=== PATIENT | female | born 1940 | race African-American/Black ===

== ENCOUNTER 2016-05-28 18:48 | Inpatient (IN) | payer MEDICARE, BC, OTHER ==
--- NOTE | ~2016-05-28 | DS ---
Discharge Summary [place] [id number] [place]. [address] NAME: ERNESTINA CARRILLO : 40 STATUS : DIS IN PAT#: [id number] AGE: 76 ADM/REG DATE : 05/28/16 MR#: [id number] REPORT SERV DATE: 06/11/16 DICTATED BY: MELE CONTRERAS DATE: 06/11/16 REPORT STATUS : Draft TRANSCRIBED BY: MODL DATE: 06/11/16 ADMISSION DATE: 05/28/2016 DISCHARGE DATE: 06/11/2016 DISCHARGE DIAGNOSES: 1. Lethargy and encephalopathy responsive to high dose steroids per Neurology recommendations. 2. Nausea vomiting, abdominal pain, present on admission but now resolved. 3. Small CVA, acute, which cannot explain the lethargy and encephalopathy above, this was an incidental finding from MRI of the brain. 4. Biliary dyskinesia without abdominal pain, this is related to poor p.o. intake. 5. Abdominal aortic aneurysm, 4.4 cm in size, stable. The patient was seen by Vascular Surgery, and she will need to follow up as an outpatient. 6. Moderate to severe mitral regurgitation on echocardiogram, well compensated. 7. Severe malnourishment. 8. Hypertension, controlled. 9. Diabetes type 2. HOSPITAL COURSE: This is a 76-year-old lady who was initially admitted to the hospital with upset stomach, nausea, vomiting and diarrhea. For details, please refer to my own H and P dated 05/28/2016. Also, there is an interim discharge summary by Dr. Rao dated 06/08/2016. I assumed care of this patient starting 06/09/2016 through today. At this point in time, the patient was simply held in the hospital for IV steroid therapy before she is transferred to [facility]. The patient had unremarkable hospital stay during my care, and the patient continued to improve with IV steroids in high doses. The patient is now being discharged home to finish this steroid therapy as a Medrol Dosepak when she goes to [facility] to continue rehab and to be followed closely. DISCHARGE MEDICATIONS: Please refer to the discharge medication reconciliation. DISPOSITION: [facility]. FOLLOWUP: 1. Please follow up with PCP in the next one to two weeks. 2. Please follow up with Neurology as instructed. 3. Please follow up with Vascular Surgery as instructed. Total of 30 minutes spent in coordinating this patient's discharge today. JUN/EZ Mele Contreras MD [address]charge Summary [address] [place] [address] NAME: ERNESTINA CARRILLO : 40 STATUS : DIS IN PAT#: [id number] AGE: 76 ADM/REG DATE : 05/28/16 MR#: [id number] REPORT SERV DATE: 06/11/16 DICTATED BY: MELE CONTRERAS DATE: 06/11/16 REPORT STATUS : Draft TRANSCRIBED BY: EZ DATE: 06/11/16 / [id number] CC: MD Cm Sheldon M.D.
--- NOTE | ~2016-05-28 | CN ---
Consultation Report [facility] [place]. [address] NAME: SHARA CARRILLO : 40 STATUS : ADM Maude PAT#: [id number] AGE: 76 ADM/REG DATE : 05/28/16 MR#: [id number] REPORT SERV DATE: 05/29/16 DICTATED BY: DALLAS BOWMAN DATE: 05/29/16 REPORT STATUS : Draft TRANSCRIBED BY: MODSilvia DATE: 05/29/16 CONSULT DATE OF CONSULTATION: 05/29/2016 LOCATION: U bed 10. I am asked to see this lady with nausea and vomiting. Shara is well known to me. She has a history of GE reflux which has been treated with medications. Apparently about two weeks ago, she had developed upper abdominal pain with nausea and vomiting. This seems to have persisted. At one time, she had diarrhea which has diminished. She denies blood in the stools or blood in the emesis. REVIEW OF SYSTEMS: Otherwise unremarkable. HOME MEDICATIONS: Include albuterol, captopril, Cardizem, Nexium, lisinopril, and tramadol. Other medical problems include glucose and hypertension. PHYSICAL EXAMINATION: GENERAL: Shows an alert, elderly appearing lady. VITAL SIGNS: Temperature is 99.5 but the vital signs are otherwise unremarkable. CHEST: Clear to auscultation. CARDIAC: Regular rhythm without rubs or murmurs. ABDOMEN: Soft with minimal tenderness in the periumbilical area. Bowel sounds normal. No palpable masses. DATA: CT of the abdomen done through the emergency room is nondiagnostic. Lab work is unremarkable. IMPRESSION: Nausea and vomiting and abdominal pain, etiology unclear. PLAN: Check amylase and lipase and repeat ultrasound of the abdomen and pelvis. Thank you for allowing me to see this lady and I will follow with you. SIMEON/EZ Consultation Report [facility] [place]. [address] NAME: SHARA CARRILLO : 40 STATUS : ADM Maude PAT#: [id number] AGE: 76 ADM/REG DATE : 05/28/16 MR#: [id number] REPORT SERV DATE: 05/29/16 DICTATED BY: DALLAS BOWMAN DATE: 05/29/16 REPORT STATUS : Draft TRANSCRIBED BY: ZE DATE: 05/29/16 Dallas Bowman M.D. / [id number] CC: Luciano Sanchez Jr, MD Dennis Leonard, M.D.
--- NOTE | ~2016-05-28 | HP ---
History And Physical [place] [id number] [facility] [place]. [address] NAME: ERNESTINA CARRILLO : 40 STATUS : ADM Maude PAT#: [id number] AGE: 76 ADM/REG DATE : 05/28/16 MR#: [id number] REPORT SERV DATE: 05/28/16 DICTATED BY: MELE CONTRERAS DATE: 05/28/16 REPORT STATUS : Draft TRANSCRIBED BY: MODL DATE: 05/28/16 DATE OF ADMISSION: 05/28/2016 CHIEF COMPLAINT: Abdominal pain and intractable nausea and vomiting. HISTORY OF PRESENT ILLNESS: This is a 76-year-old lady with a history of hypertension, diabetes, coronary artery disease, GERD, and apparent gastroparesis, presenting with intractable nausea, vomiting, and abdominal pain. The patient's family reports that she came down with a stomach flu about two weeks ago, and since then, the patient never really recovered fully. The patient was apparently seen at [facility] for this. With poor p.o. intake from the nausea and vomiting, the patient gradually grew weak. The patient was brought to the ER for further evaluation and care. In the ER, the patient was found to be afebrile and hemodynamically stable. Initial lab evaluation was all fairly benign. CT of the abdomen and pelvis was also fairly benign. Urinalysis was benign except for ketones. Dr. Pierson, who is the patient's chemist inorganic, was contacted per ER, and he advised admitting the patient for observation as the patient apparently has frequent episodes like this that simply improves with supportive care alone. The patient apparently has been following up with Dr. Pierson with similar issues over the past year to year and a half with extensive workup with no real focal findings which is contrary to what the patient's family reported. Internal Medicine consultation was requested for admission of the patient for further evaluation and care. REVIEW OF SYSTEMS: The patient denies any fevers or chills. Also, 14-point review of systems reviewed and negative other than mentioned above. MEDICATIONS: 1. Albuterol 2 puffs inhaled twice daily. 2. Captopril 50 mg p.o. b.i.d. 3. Diltiazem 240 mg p.o. q.a.m. 4. Nexium 40 mg p.o. q.a.m. 5. Lofibra 160 mg p.o. q.h.s. 6. Shanks 5/325 one tablet p.o. q.6 hours p.r.n. 7. Lisinopril 5 mg p.o. q.a.m. 8. Zofran 4 mg p.o. q.8 hours p.r.n. 9. Phenergan 12.5 to 25 one tablet p.o. q.4 hours p.r.n. 10.Ultram 50 mg p.o. q.6 hours p.r.n. 11.Vitamin D3 400 units p.o. with lunch. ALLERGIES: NKDA. PAST MEDICAL HISTORY: 1. Hypertension. 2. Diabetes type 2. 3. Coronary artery disease. History And Physical [address] [address] NAME: ERNESTINA CARRILLO : 40 STATUS : ADM Maude PAT#: [id number] AGE: 76 ADM/REG DATE : 05/28/16 MR#: [id number] REPORT SERV DATE: 05/28/16 DICTATED BY: MELE CONTRERAS DATE: 05/28/16 REPORT STATUS : Draft TRANSCRIBED BY: ZE DATE: 05/28/16 4. GERD. 5. Question gastroparesis, unspecified GI issues for which the patient apparently has chronic frequent spells of nausea and vomiting. The patient follows with Dr. Pierson as an outpatient. PAST SURGICAL HISTORY: Hysterectomy. FAMILY HISTORY: 1. Diabetes. 2. Hypertension. SOCIAL HISTORY: The patient does not smoke, drink alcohol, or use any illicit drugs. The patient lives at home with one of her daughters, but lately, the patient's family members have been taking turns in helping out also. PHYSICAL EXAMINATION: VITAL SIGNS: Temperature 99.5, blood pressure 138/97, pulse 96, respiratory rate is 16, and saturating 96% on room air. NEUROLOGIC: The patient is alert and oriented x3 with no focal neurologic deficits. GENERAL: The patient is awake, does not appear to be in acute distress, and she is cooperative. NECK: No JVD. No lymphadenopathy. Normal thyroid. CHEST: No midline sternotomy wound and no tenderness to palpation. LUNGS: Clear to auscultation bilaterally with normal respiratory effort on room air. CARDIOVASCULAR: The patient is slightly tachycardic, but otherwise, no murmurs, rubs, or gallops, and PMI is nondisplaced. ABDOMEN: Soft, nontender, with active bowel sounds and no organomegaly. EXTREMITIES: No edema. Normal distal pulses. No calf tenderness. SKIN: Clean, dry, warm, and intact. LABORATORY DATA: Sodium is 143, potassium 3.1, chloride 100, BUN 15, creatinine 0.74, glucose 140, calcium 10.0. LFTs and lipase are within normal limits. White blood cell count is 7.9, hemoglobin 15.4, platelets 349. Urinalysis was negative for urinary tract infection, although she did have an occasional bacteria. Notably, it was positive for ketones. CT of the abdomen and pelvis was largely nonacute. It did show decompressed cecum which may have attributed to thickened appearance of the mucosa, but it was negative for diverticulitis or any other infectious process. ASSESSMENT: This is a 76-year-old lady with a history of hypertension, coronary artery disease, diabetes, and gastroparesis, presenting with intractable nausea, vomiting, and abdominal pain. 1. Intractable nausea, vomiting, and abdominal pain. 2. Generalized weakness and failure to thrive. 3. Hypertension. 4. Diabetes type 2. History And Physical [address] [address] NAME: ERNESTINA CARRILLO : 40 STATUS : ADM Maude PAT#: [id number] AGE: 76 ADM/REG DATE : 05/28/16 MR#: [id number] REPORT SERV DATE: 05/28/16 DICTATED BY: MELE CONTRERAS DATE: 05/28/16 REPORT STATUS : Draft TRANSCRIBED BY: MODL DATE: 05/28/16 5. Coronary artery disease. 6. Gastroesophageal reflux disease. PLAN: My plan is to admit the patient for observation overnight. The patient will be simply given supportive care as suggested by Dr. Pierson. The patient will be given IV fluids along with antiemetics and analgesia. The patient will be given clear liquid diet to be advanced as tolerated. I will also go ahead and check a prealbumin level to assess nutritional status. Also as the patient has gotten severely weak at home, I will go ahead and get Physical Therapy to see the patient. Otherwise, for the rest of stable past medical conditions, including hypertension, diabetes, coronary artery disease, GERD, et al, I will continue home medications. Standard DVT prophylaxis. The patient is full code at this time. YSC/MODL Mele Contreras MD / [id number] CC: Luciano Sanchez Jr, MD Dennis Leonard, M.D. Matthew Bagamery, M.D.
--- NOTE | ~2016-05-28 | CN ---
Consultation Report [facility] [address] [place]. [address] NAME: ERNESTINA CARRILLO : 40 STATUS : ADM IN PAT#: [id number] AGE: 76 ADM/REG DATE : 05/28/16 MR#: [id number] REPORT SERV DATE: 06/03/16 DICTATED BY: LLOYD BURROWS DATE: 06/02/16 REPORT STATUS : Draft TRANSCRIBED BY: MODL DATE: 06/02/16 DATE OF CONSULTATION: 06/02/2016 GENERAL SURGERY CONSULT/H AND P CHIEF COMPLAINT: Nausea, vomiting, abdominal pain. HISTORY OF PRESENT ILLNESS: This is a 76-year-old female with an extensive past medical history of hypertension, diabetes, coronary artery disease, GERD and gastroparesis, who is followed by Dr. Pierson, who sees her and treats her for her gastrointestinal reflux, and the patient has frequent episodes like this one that improved with supportive care alone within hospitalization stays. The patient has been worked up over the past year with no focal findings per the chart. Per the family, the patient has had a stomach flu approximately two to three weeks ago, and since then has had intractable nausea, vomiting, abdominal pain, with progression to gradual weakness. Prior to this, the patient was walking and talking and taking care of her ADLs. Now she is minimally conversant, almost appears to be depressed with minimal p.o. intake under my interview process. Regurgitated the water she had just recently drank. The patient is able to elicit that she is nauseous and does have abdominal pain that is in the bilateral upper quadrants and is worse with eating. REVIEW OF SYSTEMS: Could not be obtained secondary to the patient minimally being conversant. PAST MEDICAL HISTORY: Hypertension, diabetes, coronary artery disease, GERD, gastroparesis. PAST SURGICAL HISTORY: Hysterectomy. MEDICATIONS: Albuterol, captopril, diltiazem, Nexium, Lofibra, [place], lisinopril, Zofran, Phenergan, Ultram, vitamin D3. ALLERGIES: NO KNOWN DRUG ALLERGIES. FAMILY HISTORY: Diabetes and hypertension. SOCIAL HISTORY: No tobacco, alcohol, or drugs. Lives at home with one of her daughters. More recently, multiple family members around the clock to take care of her. PHYSICAL EXAMINATION: VITAL SIGNS: Temperature 99.0, blood pressure 166/99, pulse is 93, respiratory rate of 18, O2 saturations 93% on room air. GENERAL: Well developed, well nourished, no acute distress, thin black female, who appears stated age. HEENT: Normocephalic and atraumatic. PERRLA, EOMI. Mucous membranes are moist. Sclerae are nonicteric. Consultation Report [place] [address] [place]. [address] NAME: ERNESTINA CARRILLO : 40 STATUS : ADM IN PAT#: [id number] AGE: 76 ADM/REG DATE : 05/28/16 MR#: [id number] REPORT SERV DATE: 06/03/16 DICTATED BY: LLOYD BURROWS DATE: 06/02/16 REPORT STATUS : Draft TRANSCRIBED BY: EZ DATE: 06/02/16 NECK: No lymphadenopathy. Trachea midline. CARDIOVASCULAR: Regular rate and rhythm. LUNGS: Clear to auscultation bilaterally. ABDOMEN: Soft, nondistended, nontender. Bowel sounds present. EXTREMITIES: No clubbing, cyanosis, or edema. 2+ pulses. MUSCULOSKELETAL: Moves all extremities well. NEURO: Cranial nerves II through XII are intact. The patient responds to yes or no questions appropriately and was minimally conversant. LABORATORY DATA: Most recent labs: White blood cell 7.5, hematocrit 44.3, platelets of 256. Sodium 136, potassium 3.2, chloride 100, bicarb 26, BUN 6, creatinine 0.82, glucose 135, calcium 9.7. Most recent liver enzymes on 05/28 showed albumin 2.6, T bilirubin 0.8, alkaline phosphatase 78, ALT 18, AST 19, lipase 116. Ultrasound showed in the biliary sludge, one floating substance representing a gallstone. There was focal thickening of the gallbladder wall, fundal region with edema, question of acute on chronic cholecystitis noted. HIDA scan, filling of the gallbladder, no mention of any pain with CCK administration, and gallbladder ejection fraction was 12%. CT scan upon admission was negative for any acute process. It did show decompressed cecum, ascending and transverse colon. 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 ASSESSMENT AND PLAN: This is a 76-year-old female with nausea, vomiting, and abdominal pain. The patient does have a complex medical problem with no clear etiology of her abdominal pain, nausea, and vomiting. The patient does have a low ejection fraction on her HIDA scan, consistent with biliary dyskinesia, although the CCK administration was not noted to have elicited the pain during the exam. Ultrasound was consistent with having cholelithiasis, possible acute on chronic cholecystitis. Surgery was explained to the patient and the patient's son. They wished for me to speak with the patient's sister, who will be back later today, to discuss the surgery as an option to try to alleviate her symptoms. DICTATED BY: MD ALEC Robison/EZ Lloyd Burrows M.D. / [id number] CC: Bull Dixon M.D.
--- NOTE | ~2016-05-28 | CN ---
Consultation Report [facility] [address] [place]. [address] NAME: ERNESTINA CARRILLO : 40 STATUS : ADM IN PAT#: [id number] AGE: 76 ADM/REG DATE : 05/28/16 MR#: [id number] REPORT SERV DATE: 06/02/16 DICTATED BY: LLOYD BURROWS DATE: 06/02/16 REPORT STATUS : Draft TRANSCRIBED BY: MODL DATE: 06/02/16 DATE OF CONSULTATION: CONTINUATION: REVIEW OF SYSTEMS: Could not be obtained secondary to the patient minimally being conversant. PAST MEDICAL HISTORY: Hypertension, diabetes, coronary artery disease, GERD, gastroparesis. PAST SURGICAL HISTORY: Hysterectomy. MEDICATIONS: Albuterol, captopril, diltiazem, Nexium, Lofibra, [place], lisinopril, Zofran, Phenergan, Ultram, vitamin D3. ALLERGIES: NO KNOWN DRUG ALLERGIES. FAMILY HISTORY: Diabetes and hypertension. SOCIAL HISTORY: No tobacco, alcohol, or drugs. Lives at home with one of her daughters. More recently, multiple family members around the clock to take care of her. PHYSICAL EXAMINATION: VITAL SIGNS: Temperature 99.0, blood pressure 166/99, pulse is 93, respiratory rate of 18, O2 saturations 93% on room air. GENERAL: Well developed, well nourished, no acute distress, thin black female, who appears stated age. HEENT: Normocephalic and atraumatic. PERRLA, EOMI. Mucous membranes are moist. Sclerae are nonicteric. NECK: No lymphadenopathy. Trachea midline. CARDIOVASCULAR: Regular rate and rhythm. LUNGS: Clear to auscultation bilaterally. ABDOMEN: Soft, nondistended, nontender. Bowel sounds present. EXTREMITIES: No clubbing, cyanosis, or edema. 2+ pulses. MUSCULOSKELETAL: Moves all extremities well. NEURO: Cranial nerves II through XII are intact. The patient responds to yes or no questions appropriately and was minimally conversant. LABORATORY DATA: Most recent labs: White blood cell 7.5, hematocrit 44.3, platelets of 256. Sodium 136, potassium 3.2, chloride 100, bicarb 26, BUN 6, creatinine 0.82, glucose 135, calcium 9.7. Most recent liver enzymes on 05/28 showed albumin 2.6, T bilirubin 0.8, alkaline phosphatase 78, ALT 18, AST 19, lipase 116. Ultrasound showed in the biliary sludge, one floating substance representing a gallstone. There was focal thickening of the gallbladder wall, fundal region with edema, question of acute on chronic cholecystitis noted. HIDA scan, filling of the gallbladder, no mention of any pain with CCK Consultation Report [place] [address] [facility] [place] [address] NAME: ERNESTINA CARRILLO : 40 STATUS : ADM IN PAT#: [id number] AGE: 76 ADM/REG DATE : 05/28/16 MR#: [id number] REPORT SERV DATE: 06/02/16 DICTATED BY: LLOYD BURROWS DATE: 06/02/16 REPORT STATUS : Draft TRANSCRIBED BY: EZ DATE: 06/02/16 administration, and gallbladder ejection fraction was 12%. CT scan upon admission was negative for any acute process. It did show decompressed cecum, ascending and transverse colon. 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 ASSESSMENT AND PLAN: This is a 76-year-old female with nausea, vomiting, and abdominal pain. The patient does have a complex medical problem with no clear etiology of her abdominal pain, nausea, and vomiting. The patient does have a low ejection fraction on her HIDA scan, consistent with biliary dyskinesia, although the CCK administration was not noted to have elicited the pain during the exam. Ultrasound was consistent with having cholelithiasis, possible acute on chronic cholecystitis. Surgery was explained to the patient and the patient's son. They wished for me to speak with the patient's sister, who will be back later today, to discuss the surgery as an option to try to alleviate her symptoms. DICTATED BY: MD ALEC Robison/EZ Lloyd Burrows M.D. / [id number] CC: Bull Dixon M.D.
--- NOTE | ~2016-05-28 | IDS ---
Interim Discharge Summary [facility] [address] [place]. [address] NAME: ERNESTINA CARRILLO : 40 STATUS : ADM IN PAT#: [id number] AGE: 76 ADM/REG DATE : 05/28/16 MR#: [id number] REPORT SERV DATE: 06/08/16 DICTATED BY: RACHELE BROWN DATE: 06/08/16 REPORT STATUS : Draft TRANSCRIBED BY: MODL DATE: 06/08/16 ADMISSION DATE: 05/28/2016 DISCHARGE DATE: The patient was seen by Dr. Saenz and his nurse practitioner, Donald Ordonez until 06/02/2016. I personally provided service for this patient from 06/02/2016 to 06/08/2016. PATIENT'S CURRENT MEDICAL PROBLEMS: 1. Decreased level of consciousness, lethargy/encephalopathy. Extensive workup. Good response to steroids. Neurology currently following. On high-dose IV steroids. 2. Lethargy, improved. 3. Nausea, vomiting, and abdominal pain present on admission, resolved. 4. Small-tiny cerebrovascular accident found on MRI of the brain, which cannot cause this lethargy. No significant neurological deficit. 5. Biliary dyskinesia without abdominal pain, related to the patient not eating. Seen by General Surgery. No surgery recommended at this time. 6. Abdominal aortic aneurysm, 4.4 cm in size, stable. Seen by Dr. Mando Jackson. Recommended to follow up with him in three months. Discussed with the patient's sister and family. 7. Moderate to severe mitral regurgitation on echocardiogram. Currently, compensated. The patient does not drink enough fluids. I discussed with her sister, if the patient's fluid intake will increase, she will need to stay on fluid restriction 1500- 1800 mL/24 hours, but now she is not drinking much fluid. 8. Severe malnourishment. 9. Hypertension, controlled. 10.Diabetes mellitus type 2. Needs to be controlled only by diet. Currently, blood sugar is elevated secondary to steroids. It will be a total of 5 days of steroid trial and after this, blood sugar is going to improve. 11.Overall good response to steroids. HISTORY OF PRESENT ILLNESS: Briefly, the patient presented with abdominal pain and intractable nausea and vomiting following upset stomach, possible stomach virus according to patient's family. For the details, see history of present illness dictated by Dr. Melecio Shabazz on 05/28/2016. HOSPITAL COURSE: Briefly, the patient was seen afterwards by Dr. Saenz and his nurse practitioner Donald Ordonez, and the patient had a workup for possible gallbladder disease. The patient has had abdominal ultrasound done, which basically showed biliary sludge in the gallbladder and some thickening. There was a question about possible cholecystitis, as well as it showed ectatic aorta with 4.4 cm aneurysm in aorta. The patient also underwent a HIDA scan on 06/01/2016, which showed ejection fraction of 12%. The patient was seen by Dr. Markos Lopes and his residents. The surgeon, Dr. Markos Lopes evaluated the patient and he did not recommend the patient to have any cholecystectomy because he thought that her symptoms are not related to gallbladder. She did not have any tenderness in the right upper quadrant as well as the low ejection fraction was related to patient not eating enough food, so Dr. Lopes spoke with family and he did not recommend any surgery. In the same time, we Interim Discharge Summary [address] [address] NAME: ERNESTINA CARRILLO : 40 STATUS : ADM IN [facility]#: [id number] AGE: 76 ADM/REG DATE : 05/28/16 MR#: [id number] REPORT SERV DATE: 06/08/16 DICTATED BY: RACHELE BROWN DATE: 06/08/16 REPORT STATUS : Draft TRANSCRIBED BY: EZ DATE: 06/08/16 stopped the patient's pain medications and did not give any sedatives. The patient was still very inactive. She was laying in bed. She was not eating, not asking for food, but she did not have any abdominal pain on palpation as well, and the patient was sleepy. Dr. Wall was seeing the patient as a psychiatrist, and he started the patient on Provigil, although there was no any significant response to Provigil. 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 Neurologist was consulted, and she put the patient on Lipitor as well as she ordered echocardiogram and bilateral carotid ultrasound, but she did not think that the patient's lethargy and decreased level of consciousness was related to stroke since it was very tiny. Dr. Lopes recommended the patient to have a trial of steroids, and she gave a high dose of steroids, and she recommends the patient to continue steroids intravenously for total of 5 days until 06/11/2016. The patient obviously has a very good response to steroids. She became more active. She is now talking to us and to her sister, and she started to eat. I emphasized to patient's sister that the patient needs to eat and drink. If she will stop eating and drinking, then her prognosis will be very poor. She also had an echocardiogram today, which showed normal ejection fraction, but it showed also moderate to severe mitral regurgitation. Right now, she is not drinking much fluids and she is slightly prerenal, so she does not need to be on a fluid restriction, but I told the patient's sister, if the patient will start drinking more, then she should watch her fluid intake, it should be 2902-2833/24 hours. Her carotid ultrasound did not show any significant blockages. Regarding abdominal aortic aneurysm, it is 4.4 cm in size. She was evaluated by Dr. Mando Jackson and she needs to follow up with Dr. Mando Jackson in three to four months. Right now, her abdominal aortic aneurysm looks stable. Overall, there is some improvement on this patient, but she needs to eat more and she is constipated. We need to check her BMP tomorrow. Currently, she is on aspirin 325 mg a day, Lipitor 40 mg a day, vitamin D 400 units daily, Cardizem CD 240 daily, Lofibra 160 daily, folic acid 1 mg daily and needs to be as well continued. She is on subcu heparin 5000 units every eight hours. She is on NovoLog sliding scale and I am increasing it to level 2, but it is only temporarily because of steroids. Lisinopril 20 mg daily. Amitiza 24 mg with breakfast and supper. She is on Megace 400 mg p.o. daily, Protonix 40 mg daily and MiraLAX twice a day. She is constipated. She needs more laxatives. Also, we will check BMP tomorrow. My partner, when the time will come to discharge, make sure the patient has a followup appointment arranged with Dr. Mando Jackson in three months. I discussed with patient's sister who is the power of litigation attorney and her children, patient's problem and they understand that she needs to eat more. My partner will see this patient starting tomorrow morning. We do not recommend any narcotic pain medications. We do not recommend any sedatives to this patient. MG/MODL Rachele Interim Discharge Summary [facility] [id number] [place]. [address] NAME: ERNESTINA CARRILLO : 40 STATUS : ADM IN PAT#: [id number] AGE: 76 ADM/REG DATE : 05/28/16 MR#: [id number] REPORT SERV DATE: 06/08/16 DICTATED BY: RACHELE BROWN DATE: 06/08/16 REPORT STATUS : Draft TRANSCRIBED BY: EZ DATE: 06/08/16 Bull Brown / [id number] CC: Bull Dixon M.D. Emmanuel Pierson M.D. Moses Burrows M.D. Mando Jackson M.D. Fausto Wall M.D. Hayes Lopes MD
--- NOTE | ~2016-05-28 | CN ---
Consultation Report [facility] [address] [place]. [address] NAME: ERNESTINA CARRILLO : 40 STATUS : ADM IN PAT#: [id number] AGE: 76 ADM/REG DATE : 05/30/16 MR#: [id number] REPORT SERV DATE: 06/01/16 DICTATED BY: FAUSTO LOCKETT DATE: 06/01/16 REPORT STATUS : Draft TRANSCRIBED BY: MODL DATE: 06/01/16 PSYCHIATRIC CONSULTATION. DATE OF CONSULTATION: 06/01/2016 I reviewed this patient's medical record. I discussed the patient's history with her sister who is at the bedside. I discussed the patient's status with her nurse. HISTORY OF PRESENT ILLNESS: She was admitted with intractable nausea, vomiting, and abdominal pain. She has lost a considerable amount of weight in recent months. I was consulted to address a possible depression and weight loss. PAST PSYCHIATRIC HISTORY: The patient did not respond to questions and she did not give any history. Her sister reported that the patient had taken opioid medications for a number of years apparently for vague back and abdominal pain. CURRENT HOME MEDICATION LIST: Included hydrocodone/APAP 5/325 q.6 hours p.r.n., Zofran 4 mg q.8 hours p.r.n., Phenergan 12.5 to 25 mg q.4 hours p.r.n., and tramadol 50 mg q.6 hours p.r.n. Today, she had Zofran 4 mg IV at 08 hours 34 minutes and 13 hours 1 minute. SOCIAL HISTORY: She lives with her daughter in [place], [place]. FAMILY HISTORY: Her sister reported that there is no family history of psychiatric issues. No people with significant mood issues. MENTAL STATUS: She appeared to be sleeping. She opened her eyes for a moment when I called her by name, and then she went back to sleep. She volunteered no information and she did not respond to my questions. DIAGNOSIS: Possible depressive disorder, NOS. RECOMMENDATIONS: This diagnosis has a low degree of certainty. Multiple issues such as opioid toxicity or withdrawal could be contributing to her GI problems and other symptoms. Also the Reglan, Zofran, and Remeron might be contributing to the sedation. At this time, I am unsure about the benefits of any further psychotropic intervention. I discussed these issues with Dr. Saenz, the hospitalist. I will follow. DK/MODL Fausto Lockett M.D. / [id number] Consultation Report [address] [place]. [address] NAME: NORBERTO CARRILLOKELLEY Faust : 40 STATUS : ADM IN PAT#: [id number] AGE: 76 ADM/REG DATE : 05/30/16 MR#: [id number] REPORT SERV DATE: 06/01/16 DICTATED BY: FAUSTO LOCKETT DATE: 06/01/16 REPORT STATUS : Draft TRANSCRIBED BY: EZ DATE: 06/01/16 CC: Bull Nolen M.D.
--- NOTE | ~2016-05-28 | CN ---
Consultation Report [facility] [address] [place]. [address] NAME: ERNESTINA CARRILLO : 40 STATUS : ADM IN PAT#: [id number] AGE: 76 ADM/REG DATE : 05/28/16 MR#: [id number] REPORT SERV DATE: 06/06/16 DICTATED BY: DATE: REPORT STATUS : Draft TRANSCRIBED BY: MODL DATE: 06/06/16 NEUROLOGY CONSULTATION DATE OF CONSULTATION: 06/06/2016 REASON FOR CONSULTATION: Stroke. HISTORY OF PRESENT ILLNESS: This is a 76-year-old female, who presented to [facility] on 05/30/2016 secondary to intractable nausea, vomiting, generalized weakness, as well as encephalopathy. Also, the patient's family reports the patient was noted to have GI infection with "stomach virus" around 05/18/2016. Since then, the patient was noted to have progressive weakness to the point that the patient is unable to ambulate and unable to perform activities of daily living. In addition, the patient was noted to have progressive encephalopathy with the patient very sleepy, difficult to arouse, barely communicating, and unable to take any p.o. diet. The patient prior to the illness was noted to have a normal mentation and was not noted to have any cognitive difficulties or memory difficulties. The patient's family reports that the patient was able to remember conversation as well as TV programs without significant difficulties and was able to ambulate without difficulties and was able to perform activities of daily living for herself prior to her illness. The patient was not noted to have similar events in the past. No reports of recorded fever were noted, but concern for possible subjective fever was raised by family members. The patient during the illness was started on Provigil as well as inhaler, as well as Phenergan, but otherwise, no changes in medication were noted. The patient's family denies any significant improvement of the patient's symptoms with the addition of Provigil. The patient does not appear to be more alert with the Provigil trials. Other than the GI infection, the patient was not noted to have any other medical issues, except for possible shortness of breath. PAST MEDICAL HISTORY: Significant for hypertension, diabetes, coronary artery disease, gastroesophageal reflux disease, possible gastroparesis. REVIEW OF SYSTEMS: The patient's review of systems is negative, except for those mentioned in the HPI, although the patient is unable to provide answers to review of systems. Review of systems was obtained from family members. ALLERGIES: THE PATIENT WAS NOTED TO HAVE NO KNOWN DRUG ALLERGIES. FAMILY HISTORY: Significant for hypertension and diabetes. SOCIAL HISTORY: Denies tobacco, alcohol, or recreational drug usage. HOME MEDICATIONS: Consist of aspirin, Cardizem, Catapres, folic acid, heparin, Lofibra, Megace, MiraLax, NovoLog, lisinopril, Protonix, Proventil, Provigil, vitamin D, as well as Amitiza. Consultation Report [facility] [address] [place]. [address] NAME: ERNESTINA CARRILLO : 40 STATUS : ADM IN [facility]#: [id number] AGE: 76 ADM/REG DATE : 05/28/16 MR#: [id number] REPORT SERV DATE: 06/06/16 DICTATED BY: DATE: REPORT STATUS : Draft TRANSCRIBED BY: MODL DATE: 06/06/16 PHYSICAL EXAMINATION: VITAL SIGNS: At the time of my evaluation overnight, the patient was noted to have vital signs with T-max of 98.5, heart rates of 80 to 105, respirations of 12 to 20, and blood pressure of 116 to 152 over 69 to 89. GENERAL: The patient is well developed, well nourished, in no acute distress. CARDIOVASCULAR: Regular rate and rhythm. No carotid bruits were otherwise auscultated. PULMONARY: Clear to auscultation bilaterally. NEUROLOGICAL: Generally, the patient was obtunded, difficult to arouse, but arousable with tactile stimulation. The patient is oriented to self only. Follows occasional simple commands at the time of my evaluation and was noted to have difficulty maintaining arousal with decreased attention span at the time of my evaluation. Dysphonia and dysarthria were otherwise noted at the time of my evaluation. Cranial nerves II through XII, pupils equal, round, and reactive to light. Horizontal eye movement was noted to stimulus tracking. No clear blink to threat response was noted. Appeared to have symmetrical sensation to noxious stimulation in bilateral face. Facial expression appeared to be symmetrical at the time of my evaluation. The patient demonstrated spontaneous movement of bilateral upper extremity and lower extremity on command, but the patient was noted to have roughly 4/5 bilateral upper extremity. No clear shaking or jerking or myoclonus jerk was noted. The patient also demonstrated 2/5 strength in bilateral lower extremities. Otherwise, grimace and withdrawal to noxious stimulation in all four extremities. Hyporeflexia was noted throughout. Downgoing toe on bilateral plantar reflexes secondary to the patient's mental status. Gait and cerebellar examination was unable to be evaluated. LABORATORY STUDIES: Demonstrated a white blood cell count of 8.4, hemoglobin of 15.2, hematocrit of 42.7, platelet count of 322. Chemistry panel: Sodium 136, potassium 4.0, chloride 102, bicarb 24, BUN of 8, creatinine of 0.75, glucose of 116, calcium of 9.7, magnesium of 2.0. CT scan of the brain demonstrated generalized atrophy as well as underlying white matter disease with MRI of the brain demonstrating left subcortical white matter small ischemic stroke, no other acute process was seen, generalized atrophy was otherwise noted. IMPRESSION: 1. Encephalopathy. Etiology is otherwise unclear. The patient was noted to have a very small stroke in the left MCA territory, subcortical white matter area. Doubtful the small stroke is the etiology for the patient's encephalopathy. The patient also was noted to have recent GI infections on 05/18/2016, question of autoimmune response causing the patient's encephalopathy. We are recommending to continue folate supplementation. We will check sedimentation rate, CRP as well as a procalcitonin level. We will also obtain thyroid antibody as well as a serum RON for evaluation. Secondary to lack of response and clinical improvement with Provigil, we will discontinue the medication. If the patient's sedimentation rate and CRP are elevated and the procalcitonin remains normal, we are recommending starting either IVIG or IV Solu-Medrol. 2. Cerebrovascular accident in the left subcortical MCA distribution area, likely Consultation Report [facility] [address] [facility] [place]. [address] NAME: ERNESTINA CARRILLO : 40 STATUS : ADM IN PAT#: [id number] AGE: 76 ADM/REG DATE : 05/28/16 MR#: [id number] REPORT SERV DATE: 06/06/16 DICTATED BY: DATE: REPORT STATUS : Draft TRANSCRIBED BY: MODL DATE: 06/06/16 incidental finding. However, we will check fasting lipid panel, as well as a hemoglobin A1c. We will obtain echo and carotid Doppler study. RECOMMENDATIONS: 1. Sedimentation rate, CRP, RON, free T4, TSH, and thyroid antibody with morning labs. 2. Echocardiogram. 3. Carotid Doppler study. 4. We will discontinue Provigil. 5. Lipitor 80 mg p.o. q.h.s. 6. Fasting lipid panel and hemoglobin A1c with morning labs. CCH/MODL Hayes Lopes MD / [id number] CC: Bull Dixon M.D.
[2016-05-28 14:33] LABS: BASOPHILS 0.1 %; BASOPHILS ABSOLUTE 0.01 10/3/uL (0.0-0.16); EOSINOPHILS 0 %; ER CBC TAT 0 Hrs 02 Mins; HEMATOCRIT 43.5 % (36.0-48.0); HEMOGLOBIN 15.4 g/dL (12.0-16.0); IMMATURE GRANULOCYTES 0.1 %; IMMATURE GRANULOCYTES ABSOLUTE 0.01 10/3/uL (0.0-0.11); LYMPHOCYTES 14.6 %; LYMPHOCYTES ABSOLUTE 1.15 10/3/uL (0.67-4.30); MEAN CORPUS HGB CONC 35.4 g/dL (32.0-36.0); MEAN CORPUSCULAR HEMOGLOB 30.3 pg (26.0-34.0); MEAN CORPUSCULAR VOLUME 85.6 fL (80-100); MEAN PLATELET VOLUME 9.6 fL (9.2-13.0); MONOCYTES 7.6 %; NEUTROPHILS 77.6 %; PLATELET COUNT 349 10/3/uL (150-400); RBC DISTRIBUTION WIDTH 12.3 % (12.0-16.0); RED CELL COUNT 5.08 10/6/uL (4.0-5.6); WHITE BLOOD CELLS 7.9 10/3/uL (4.5-10.5)
[2016-05-28 14:35] LABS: MANUAL DIFF NO %
[2016-05-28 14:49] LABS: A/G RATIO 0.4 (0.7-1.9); ALBUMIN 2.6 G/DL (3.5-5.0); ALKALINE PHOSPHATASE 78 U/L (45-117); BUN (BLOOD UREA NITROGEN) 15 MG/DL (6-23); CHLORIDE, SERUM 100 MMOL/L (96-112); CO2 (CARBON DIOXIDE) 25 MMOL/L (24-34); CREATININE 0.74 MG/DL (0.55-1.02); GFR AFRICAN AMERICAN 91 ML/MIN (>=60); GFR NON AFRICAN AMERICAN 79 ML/MIN (>=60); GLOBULIN 5.9 G/DL (2.5-4.1); GLUCOSE, SERUM 140 MG/DL (60-99); POTASSIUM, SERUM 3.1 MMOL/L (3.5-5.3); SGOT(AST) 19 U/L (5-40); SGPT(ALT) 18 U/L (5-65); SODIUM, SERUM 143 MMOL/L (135-148); TOTAL BILIRUBIN 0.8 MG/DL (0-1.2); TOTAL PROTEIN 8.5 G/DL (6.0-8.5)
[2016-05-28 18:35] LABS: ASCORBIC ACID (UR NOT ORDER) NEG (NEG); BILIRUBIN, URINE NEGATIVE (NEG); ER URINALYSIS TAT 0 Hrs 15 Mins; KETONE, URINE 80 MG/DL (NEG); LEUKOCYTE ESTERASE(NOT OR NEG (NEG); NITRITE (URINE) NEG (NEG); WBC (NOT ORDERED) (RFLEX) 4 (0-5)
[2016-05-28] MEDS ORDERED: NEXIUM40 PO (21:03)
[2016-05-28] MEDS ORDERED: NORCO1 TA1 PO (21:04)
[2016-05-28] MEDS ORDERED: TAZTIA X1 PO (21:04)
[2016-05-28] MEDS ORDERED: LOFIBRA160 MG PO (21:05)
[2016-05-28] MEDS ORDERED: CAP50 PO (21:05)
[2016-05-28] MEDS ORDERED: ZOFRAN4 PO (21:06)
[2016-05-28] MEDS ORDERED: VITAMIN D3 PO (21:06)
[2016-05-28] MEDS ORDERED: ULTRAM50 PO (21:07)
[2016-05-28] MEDS ORDERED: PRIN5 PO (21:08)
[2016-05-28] MEDS ORDERED: PR25 PO (21:08)
[2016-05-28] MEDS ORDERED: VENTOLIN HFA INH (21:11)
[2016-05-29 04:49] LABS: BUN (BLOOD UREA NITROGEN) 13 MG/DL (6-23); CALCIUM, SERUM 9.4 MG/DL (8.5-10.4); CHLORIDE, SERUM 106 MMOL/L (96-112); CO2 (CARBON DIOXIDE) 24 MMOL/L (24-34); GFR AFRICAN AMERICAN 83 ML/MIN (>=60); GFR NON AFRICAN AMERICAN 72 ML/MIN (>=60); POTASSIUM, SERUM 3.1 MMOL/L (3.5-5.3); SODIUM, SERUM 144 MMOL/L (135-148)
[2016-05-29 04:55] LABS: GLUCOSE, SERUM 201 MG/DL (60-99)
[2016-05-29 05:01] LABS: PREALBUMIN 9.4 MG/DL (17.0-43.0)
[2016-05-29 05:12] LABS: BASOPHILS 0 %; EOSINOPHILS 0 %; HEMATOCRIT 42.4 % (36.0-48.0); HEMOGLOBIN 14.8 g/dL (12.0-16.0); IMMATURE GRANULOCYTES 0.3 %; IMMATURE GRANULOCYTES ABSOLUTE 0.03 10/3/uL (0.0-0.11); LYMPHOCYTES 11.5 %; MEAN CORPUS HGB CONC 34.9 g/dL (32.0-36.0); MEAN CORPUSCULAR HEMOGLOB 30.4 pg (26.0-34.0); MEAN CORPUSCULAR VOLUME 87.1 fL (80-100); MEAN PLATELET VOLUME 9.9 fL (9.2-13.0); MONOCYTES 10.7 %; MONOCYTES ABSOLUTE 1.21 10/3/uL (0.21-1.20); NEUTROPHILS 77.5 %; NEUTROPHILS ABSOLUTE 8.81 10/3/uL (2.02-8.40); PLATELET COUNT 329 10/3/uL (150-400); RBC DISTRIBUTION WIDTH 12.4 % (12.0-16.0); RED CELL COUNT 4.87 10/6/uL (4.0-5.6)
[2016-05-29 05:17] LABS: MANUAL DIFF NO %; WHITE BLOOD CELLS 11.4 10/3/uL (4.5-10.5)
[2016-05-30 04:54] LABS: BUN (BLOOD UREA NITROGEN) 6 MG/DL (6-23); CALCIUM, SERUM 9.9 MG/DL (8.5-10.4); CHLORIDE, SERUM 104 MMOL/L (96-112); CO2 (CARBON DIOXIDE) 28 MMOL/L (24-34); CREATININE 0.63 MG/DL (0.55-1.02); GFR AFRICAN AMERICAN 101 ML/MIN (>=60); GFR NON AFRICAN AMERICAN 87 ML/MIN (>=60); GLUCOSE, SERUM 159 MG/DL (60-99); POTASSIUM, SERUM 3.5 MMOL/L (3.5-5.3); SODIUM, SERUM 140 MMOL/L (135-148)
[2016-05-31 04:57] LABS: BUN (BLOOD UREA NITROGEN) 4 MG/DL (6-23); CHLORIDE, SERUM 102 MMOL/L (96-112); CO2 (CARBON DIOXIDE) 27 MMOL/L (24-34); CREATININE 0.78 MG/DL (0.55-1.02); GFR AFRICAN AMERICAN 86 ML/MIN (>=60); GFR NON AFRICAN AMERICAN 74 ML/MIN (>=60); POTASSIUM, SERUM 3.8 MMOL/L (3.5-5.3); SODIUM, SERUM 139 MMOL/L (135-148)
[2016-05-31 04:58] LABS: GLUCOSE, SERUM 123 MG/DL (60-99)
[2016-05-31 22:42] LABS: WBC (NOT ORDERED) (RFLEX) 0 (0-5)
[2016-05-31 22:52] LABS: ASCORBIC ACID (UR NOT ORDER) NEG (NEG); BILIRUBIN, URINE NEGATIVE (NEG); KETONE, URINE NEGATIVE (NEG); LEUKOCYTE ESTERASE(NOT OR NEG (NEG)
[2016-06-01 04:17] LABS: HEMATOCRIT 43.2 % (36.0-48.0); MEAN CORPUS HGB CONC 34.7 g/dL (32.0-36.0); MEAN CORPUSCULAR HEMOGLOB 29.9 pg (26.0-34.0); MEAN CORPUSCULAR VOLUME 86.2 fL (80-100); MEAN PLATELET VOLUME 9.6 fL (9.2-13.0); PLATELET COUNT 290 10/3/uL (150-400); RBC DISTRIBUTION WIDTH 12.7 % (12.0-16.0); RED CELL COUNT 5.01 10/6/uL (4.0-5.6); WHITE BLOOD CELLS 7.5 10/3/uL (4.5-10.5)
[2016-06-01 04:31] LABS: BUN (BLOOD UREA NITROGEN) 5 MG/DL (6-23); CHLORIDE, SERUM 96 MMOL/L (96-112); CO2 (CARBON DIOXIDE) 30 MMOL/L (24-34); CREATININE 0.84 MG/DL (0.55-1.02); GFR AFRICAN AMERICAN 78 ML/MIN (>=60); GFR NON AFRICAN AMERICAN 68 ML/MIN (>=60); SODIUM, SERUM 137 MMOL/L (135-148)
[2016-06-01 04:32] LABS: GLUCOSE, SERUM 176 MG/DL (60-99); POTASSIUM, SERUM 3.8 MMOL/L (3.5-5.3)
[2016-06-01 04:38] LABS: MANUAL DIFF YES %
[2016-06-01 05:26] LABS: EOSINOPHILS 1 %; EOSINOPHILS ABSOLUTE (CALC) 0.08 10/3/uL (0.0-0.53); LYMPHOCYTES 24 %; MONOCYTES 12 %; NEUTROPHILS ABSOLUTE (CALC) 4.73 10/3/uL (2.02-8.40); PLATELET ESTIMATE ADQ (ADEQUATE); RBC MORPHOLOGY NORM (NORMAL); SEGMENTED NEUTROPHIL (0) 63 %; TOTAL NUCLEATED CELLS 100
[2016-06-02 06:12] LABS: BASOPHILS 0.1 %; BASOPHILS ABSOLUTE 0.01 10/3/uL (0.0-0.16); EOSINOPHILS 0.1 %; EOSINOPHILS ABSOLUTE 0.01 10/3/uL (0.0-0.53); HEMATOCRIT 44.3 % (36.0-48.0); HEMOGLOBIN 15.3 g/dL (12.0-16.0); IMMATURE GRANULOCYTES 0.5 %; IMMATURE GRANULOCYTES ABSOLUTE 0.04 10/3/uL (0.0-0.11); LYMPHOCYTES 20.9 %; LYMPHOCYTES ABSOLUTE 1.56 10/3/uL (0.67-4.30); MANUAL DIFF NO %; MEAN CORPUS HGB CONC 34.5 g/dL (32.0-36.0); MEAN CORPUSCULAR HEMOGLOB 30.2 pg (26.0-34.0); MEAN CORPUSCULAR VOLUME 87.5 fL (80-100); MEAN PLATELET VOLUME 9.4 fL (9.2-13.0); MONOCYTES 16.4 %; MONOCYTES ABSOLUTE 1.22 10/3/uL (0.21-1.20); NEUTROPHILS ABSOLUTE 4.62 10/3/uL (2.02-8.40); PLATELET COUNT 256 10/3/uL (150-400); RBC DISTRIBUTION WIDTH 12.5 % (12.0-16.0); RED CELL COUNT 5.06 10/6/uL (4.0-5.6); WHITE BLOOD CELLS 7.5 10/3/uL (4.5-10.5)
[2016-06-02 06:21] LABS: BUN (BLOOD UREA NITROGEN) 6 MG/DL (6-23); CALCIUM, SERUM 9.7 MG/DL (8.5-10.4); CHLORIDE, SERUM 100 MMOL/L (96-112); CO2 (CARBON DIOXIDE) 26 MMOL/L (24-34); CREATININE 0.82 MG/DL (0.55-1.02); GFR AFRICAN AMERICAN 81 ML/MIN (>=60); GFR NON AFRICAN AMERICAN 70 ML/MIN (>=60); POTASSIUM, SERUM 3.2 MMOL/L (3.5-5.3); SODIUM, SERUM 136 MMOL/L (135-148)
[2016-06-02 06:23] LABS: GLUCOSE, SERUM 135 MG/DL (60-99)
[2016-06-03 08:49] LABS: BASOPHILS 0.1 %; BASOPHILS ABSOLUTE 0.01 10/3/uL (0.0-0.16); EOSINOPHILS 0.1 %; EOSINOPHILS ABSOLUTE 0.01 10/3/uL (0.0-0.53); HEMATOCRIT 42.7 % (36.0-48.0); HEMOGLOBIN 15.2 g/dL (12.0-16.0); IMMATURE GRANULOCYTES 0.8 %; IMMATURE GRANULOCYTES ABSOLUTE 0.07 10/3/uL (0.0-0.11); LYMPHOCYTES 26.4 %; LYMPHOCYTES ABSOLUTE 2.22 10/3/uL (0.67-4.30); MEAN CORPUS HGB CONC 35.6 g/dL (32.0-36.0); MEAN CORPUSCULAR HEMOGLOB 30.6 pg (26.0-34.0); MEAN CORPUSCULAR VOLUME 86.1 fL (80-100); MEAN PLATELET VOLUME 9.3 fL (9.2-13.0); MONOCYTES 11.8 %; MONOCYTES ABSOLUTE 0.99 10/3/uL (0.21-1.20); NEUTROPHILS 60.8 %; NEUTROPHILS ABSOLUTE 5.11 10/3/uL (2.02-8.40); PLATELET COUNT 322 10/3/uL (150-400); RBC DISTRIBUTION WIDTH 12.6 % (12.0-16.0); RED CELL COUNT 4.96 10/6/uL (4.0-5.6); WHITE BLOOD CELLS 8.4 10/3/uL (4.5-10.5)
[2016-06-03 08:50] LABS: MANUAL DIFF NO %
[2016-06-03 08:59] LABS: BUN (BLOOD UREA NITROGEN) 7 MG/DL (6-23); CALCIUM, SERUM 10.1 MG/DL (8.5-10.4); CHLORIDE, SERUM 104 MMOL/L (96-112); CO2 (CARBON DIOXIDE) 23 MMOL/L (24-34); CREATININE 0.72 MG/DL (0.55-1.02); GFR AFRICAN AMERICAN 94 ML/MIN (>=60); GFR NON AFRICAN AMERICAN 81 ML/MIN (>=60); GLUCOSE, SERUM 141 MG/DL (60-99); POTASSIUM, SERUM 3.5 MMOL/L (3.5-5.3); SODIUM, SERUM 138 MMOL/L (135-148)
[2016-06-04 05:48] LABS: BUN (BLOOD UREA NITROGEN) 6 MG/DL (6-23); CALCIUM, SERUM 9.2 MG/DL (8.5-10.4); CHLORIDE, SERUM 102 MMOL/L (96-112); CO2 (CARBON DIOXIDE) 22 MMOL/L (24-34); CREATININE 0.79 MG/DL (0.55-1.02); GFR AFRICAN AMERICAN 84 ML/MIN (>=60); GFR NON AFRICAN AMERICAN 73 ML/MIN (>=60); GLUCOSE, SERUM 162 MG/DL (60-99); SODIUM, SERUM 135 MMOL/L (135-148)
[2016-06-04 05:57] LABS: POTASSIUM, SERUM 4.4 MMOL/L (3.5-5.3)
[2016-06-04 13:30] LABS: FOLATE 2.8 NG/ML (>5.2)
[2016-06-05 07:09] LABS: BUN (BLOOD UREA NITROGEN) 8 MG/DL (6-23); CALCIUM, SERUM 9.7 MG/DL (8.5-10.4); CHLORIDE, SERUM 102 MMOL/L (96-112); CO2 (CARBON DIOXIDE) 24 MMOL/L (24-34); CREATININE 0.75 MG/DL (0.55-1.02); GFR AFRICAN AMERICAN 90 ML/MIN (>=60); GFR NON AFRICAN AMERICAN 77 ML/MIN (>=60); SODIUM, SERUM 136 MMOL/L (135-148)
[2016-06-05 07:10] LABS: GLUCOSE, SERUM 116 MG/DL (60-99)
[2016-06-07 08:27] LABS: C-REACTIVE PROTEIN 74.5 MG/L (<8.0); CHOL/HDL RATIO(NOT ORDER) 3.8 (0-5); FREE T4 1.3 NG/DL (0.76-1.46); ULTRASENSITIVE TSH 1.03 MCIU/ML (0.358-3.740)
[2016-06-07 09:02] LABS: PROCALCITONIN 0.11 ng/mL (<0.5)
[2016-06-08 07:37] LABS: ANA TITER <1:40 TITER
[2016-06-08 14:11] LABS: CALCIUM, SERUM 9.4 MG/DL (8.5-10.4); CHLORIDE, SERUM 104 MMOL/L (96-112); CO2 (CARBON DIOXIDE) 22 MMOL/L (24-34); CREATININE 1.04 MG/DL (0.55-1.02); GFR AFRICAN AMERICAN 60 ML/MIN (>=60); GFR NON AFRICAN AMERICAN 52 ML/MIN (>=60); POTASSIUM, SERUM 4.2 MMOL/L (3.5-5.3); SODIUM, SERUM 137 MMOL/L (135-148)
[2016-06-08 14:13] LABS: BUN (BLOOD UREA NITROGEN) 21 MG/DL (6-23); GLUCOSE, SERUM 245 MG/DL (60-99)
[2016-06-09 05:16] LABS: BASOPHILS 0 %; EOSINOPHILS 0 %; HEMATOCRIT 34.7 % (36.0-48.0); HEMOGLOBIN 11.9 g/dL (12.0-16.0); IMMATURE GRANULOCYTES 0.5 %; IMMATURE GRANULOCYTES ABSOLUTE 0.05 10/3/uL (0.0-0.11); LYMPHOCYTES 7.5 %; LYMPHOCYTES ABSOLUTE 0.75 10/3/uL (0.67-4.30); MANUAL DIFF NO %; MEAN CORPUS HGB CONC 34.3 g/dL (32.0-36.0); MEAN CORPUSCULAR VOLUME 87.4 fL (80-100); MEAN PLATELET VOLUME 9.6 fL (9.2-13.0); MONOCYTES 2.4 %; MONOCYTES ABSOLUTE 0.24 10/3/uL (0.21-1.20); NEUTROPHILS 89.6 %; PLATELET COUNT 292 10/3/uL (150-400); RBC DISTRIBUTION WIDTH 12.9 % (12.0-16.0); RED CELL COUNT 3.97 10/6/uL (4.0-5.6)
[2016-06-09 05:28] LABS: BUN (BLOOD UREA NITROGEN) 19 MG/DL (6-23); CALCIUM, SERUM 9.7 MG/DL (8.5-10.4); CHLORIDE, SERUM 103 MMOL/L (96-112); CO2 (CARBON DIOXIDE) 21 MMOL/L (24-34); CREATININE 0.88 MG/DL (0.55-1.02); GFR AFRICAN AMERICAN 74 ML/MIN (>=60); GFR NON AFRICAN AMERICAN 64 ML/MIN (>=60); POTASSIUM, SERUM 4.3 MMOL/L (3.5-5.3); SODIUM, SERUM 135 MMOL/L (135-148)
[2016-06-09 05:29] LABS: GLUCOSE, SERUM 147 MG/DL (60-99)
[2016-06-09 20:15] LABS: THYROGLOBULIN AUTO ANTIBODY <0.9 IU/mL (0.0-4.0)
[2016-06-13 08:49] LABS: THYROXINE BINDING GLOBULIN 12.9 ug/mL (13.0-30.0)
[2016-08-08] MEDS ORDERED: AMITIZA24 PO (15:08)
[2016-08-08] MEDS ORDERED: CARDCD240 PO (15:09)
[2016-08-08] MEDS ORDERED: LIPITOR80 MG PO (15:09)
[2016-08-08] MEDS ORDERED: LOFIB160 PO (15:09)
[2016-08-08] MEDS ORDERED: ASA5GR PO (15:09)
[2016-08-08] MEDS ORDERED: MIRALAX POWDER1 PKT PO (15:10)
[2016-08-08] MEDS ORDERED: FOLIC ACID800 MCG PO (15:10)
[2016-08-08] MEDS ORDERED: PRIN20 PO (15:10)
[2016-08-08] MEDS ORDERED: PRILOSEC OTC20 MG PO (15:11)
[2016-08-08] MEDS ORDERED: VITAMIN D400 UNI1 PO (15:11)
[2016-08-08] MEDS ORDERED: X25 PO (15:12)
[2016-08-08] MEDS ORDERED: VENTOLIN HFA INH (15:12)
[2016-08-08] MEDS ORDERED: T PO (15:13)
[2016-08-08] MEDS ORDERED: ZOFRAN4 PO (15:14)
[2016-08-08] MEDS ORDERED: ASPERCREME TOP (15:15)
== END 2016-06-11 21:33 | DRG 70 ==
LOC: ER 18:48 → CDU1 21:08 → 4SO 05-31 01:17
PROVIDERS: Emergency Medicine; Hospitalist; Internal Medicine; Nurse Practitioner Gerontology; Psychiatry & Neurology Neurology
DX: G93.40 Encephalopathy, unspecified (principal); E43 Unspecified severe protein-calorie malnutrition; I63.512 Cerebral infarction due to unspecified occlusion or stenosis of left middle cerebral artery; K80.10 Calculus of gallbladder with chronic cholecystitis without obstruction; K82.8 Other specified diseases of gallbladder; K31.84 Gastroparesis; I34.0 Nonrheumatic mitral (valve) insufficiency; I10 Essential (primary) hypertension; R11.2 Nausea with vomiting, unspecified; R10.9 Unspecified abdominal pain; I25.10 Atherosclerotic heart disease of native coronary artery without angina pectoris; K21.9 Gastro-esophageal reflux disease without esophagitis; Z79.891 Long term (current) use of opiate analgesic; R53.1 Weakness; R62.7 Adult failure to thrive; Z79.82 Long term (current) use of aspirin; Z79.01 Long term (current) use of anticoagulants; R47.1 Dysarthria and anarthria; R49.0 Dysphonia; F32.9 Major depressive disorder, single episode, unspecified; I71.4 Abdominal aortic aneurysm, without rupture; E09.65 Drug or chemical induced diabetes mellitus with hyperglycemia; T38.0X5A Adverse effect of glucocorticoids and synthetic analogues, initial encounter; Y92.239 Unspecified place in hospital as the place of occurrence of the external cause; Z68.20 Body mass index [BMI] 20.0-20.9, adult; E87.6 Hypokalemia; K59.03 Drug induced constipation; T40.2X5A Adverse effect of other opioids, initial encounter; Y92.009 Unspecified place in unspecified non-institutional (private) residence as the place of occurrence of the external cause; E53.8 Deficiency of other specified B group vitamins
CPT/HCPCS: 70450; 70551; 71010; 74000; 74176; 76700; 76856; 78227; 80048; 80053; 80061; 81001; 82140; 82150; 82607; 82746; 82962; 83036; 83690; 83735; 84132; 84134; 84145; 84439; 84442; 84443; 85025; 85652; 86039; 86140; 86800; 93880; 94640; 96374; 97110-GP; 97116-GP; 97161-GP; 99284; A9270-GY; A9537; C8929; C9113; G8978-CK-GP; G8979-CJ-GP; J0360; J2405; J2550; J2765; J2805; J2930; Q9957

== ENCOUNTER 2016-08-08 15:48 | Inpatient (IN) | payer MEDICARE, BC, OTHER ==
--- NOTE | ~2016-08-08 | CN ---
Consultation Report [facility] [address] [place]. [address] NAME: ERNESTINA CARRILLO : 40 STATUS : ADM IN [facility]#: [id number] AGE: 76 ADM/REG DATE : 08/08/16 MR#: [id number] REPORT SERV DATE: 08/09/16 DICTATED BY: MARLO ESPINOZA DATE: 08/09/16 REPORT STATUS : Draft TRANSCRIBED BY: EZ DATE: 08/09/16 CONSULTATION DATE OF CONSULTATION: HISTORY OF PRESENT ILLNESS: This is a 76-year-old woman whom I am asked to see at Dr. Pierson's absence for evaluation of abdominal pain, weight loss, and malnutrition. She is known to Dr. Pierson from prior evaluations. She was apparently seen during a recent hospitalization for similar complaints, at which time a CT scan was normal and a HIDA scan revealed some biliary dyskinesia. She has been on laxatives for IBS with constipation, but has had poor bowel function at home. She just not wanted to eat. She has continued complaints of abdominal pain. She has a known AAA, which now appears to be just over 5 cm in size. Vascular Surgery had seen her and a CT angiogram was planned. Question has been raised about whether she needs a PEG tube due to her poor nutritional status. PAST MEDICAL HISTORY: 1. GERD. 2. IBS. 3. Biliary dyskinesia. 4. Hypertension. 5. Coronary artery disease. 6. CVA. 7. Hyperlipidemia. PAST SURGICAL HISTORY: Status post hysterectomy. MEDICATIONS (ON ADMISSION): Tylenol, Ventolin, Xanax, aspirin, Lipitor, vitamin D, Cardizem, fenofibrate, folic acid, Prinivil, Amitiza, Prilosec, Zofran, MiraLAX, and Aspercreme. ALLERGIES: NO KNOWN DRUG ALLERGIES. FAMILY HISTORY: Remarkable for diabetes and hypertension. SOCIAL HISTORY: She uses no tobacco or alcohol. She lives at home with her daughters. REVIEW OF SYSTEMS: Otherwise unremarkable for constitutional, endocrine, neurologic, psychiatric, ocular, ENT, pulmonary, cardiovascular, GI, , or rheumatologic symptoms except for as noted above. PHYSICAL EXAMINATION: GENERAL: She got a flat affect, but she is in no acute distress. VITAL SIGNS: Afebrile. SKIN: Warm and dry. Consultation Report [facility] [address] [address] NAME: ERNESTINA CARRILLO : 40 STATUS : ADM IN [facility]#: [id number] AGE: 76 ADM/REG DATE : 08/08/16 MR#: [id number] REPORT SERV DATE: 08/09/16 DICTATED BY: MARLO ESPINOZA DATE: 08/09/16 REPORT STATUS : Draft TRANSCRIBED BY: MODL DATE: 08/09/16 LUNGS: Clear. ABDOMEN: Soft and nontender. EXTREMITIES: No edema. LABORATORY DATA: Hemoglobin A1c 5%. Lactate normal. Potassium is up from 2.1 yesterday to 3.3 today, sodium 145, BUN 5, creatinine 0.39. Troponin normal. Hemoglobin low at 10.6, white count 4.7, and platelet count 245. Magnesium 1.5. Prealbumin low at 3 with a normal range being [address] scan shows a 5 cm AAA and moderate stool. INR 1.0. IMPRESSIONS: 1. Gastroesophageal reflux disease. 2. Irritable bowel syndrome with constipation. 3. 5 cm aortic aneurysm. 4. Chronic blood-loss anemia. 5. Malnutrition with prealbumin of less than 3. RECOMMENDATIONS: 1. Agree with Vascular evaluation with CTA. 2. We will try MiraLAX 1 capful twice daily. 3. Continue proton pump inhibitor. 4. If she is not improved, Linzess could be considered. 5. PEG tube could also be considered for her nutritional support depending on the rest of the evaluation. /EZ Marlo Espinoza M.D. / [id number] CC: Eris Mendez M.D. Bull Whyte M.D.
--- NOTE | ~2016-08-08 | HP ---
History And Physical [place] [id number] [facility] [place]. [address] NAME: ERNESTINA CARRILLO : 40 STATUS : ADM IN [facility]#: [id number] AGE: 76 ADM/REG DATE : 08/08/16 MR#: [id number] REPORT SERV DATE: 08/08/16 DICTATED BY: MILLIE HUNT DATE: 08/08/16 REPORT STATUS : Draft TRANSCRIBED BY: MODL DATE: 08/08/16 DATE OF ADMISSION: 08/08/2016 CHIEF COMPLAINT: Abdominal pain, failure to thrive, and not eating. HISTORY OF PRESENT ILLNESS: Obtained mainly from patient's family present at bedside. This patient is a very poor historian. Also, emergency room medical records and prior medical records available to us were thoroughly reviewed. According to the information available, the patient is a pleasant 76-year-old black woman with a history of hypertension, history of coronary artery disease, who was actually admitted for most of the month of 05/2016 in our hospitalist service and then discharged to SNF for rehab. The patient was discharged home since the beginning of 06/2016 and as per family and per patient, she had continued to get weaker with progressive worse abdominal pain with very poor intake and failure to thrive. The patient still gets up and gets around with a walker, but with significant assistance per patient's family and progressively, she has decreased in her p.o. intake. Apparently, Home Health had suggested a possible PEG tube placement. She also had continued to complain of increasing abdominal pain, generalized, nonspecific, almost continuous, but not associated with food intake, not associated with the bowel movement. No vomiting reported, but positive for nausea. No fever or chills. No diarrhea. The patient is suffering actually from chronic constipation, for which she takes medications. The patient had significant amount of weight loss as per patient's family. In the emergency room, the patient was investigated, was noticed to be very frail, ill appearing, complaining of generalized abdominal pain, and further investigations revealed a potassium of 2.1. A CT scan of the abdomen and pelvis without contrast showing previously known AAA enlarged to 5.5 cm. Therefore, because of the above presentation of abdominal pain with malnutrition and enlargement of the abdominal aortic aneurysm, as well as hypokalemia, the patient was referred to the hospitalist service for further management and evaluation. PAST MEDICAL HISTORY: Significant for hypertension. Significant for reported coronary artery disease. Significant for moderate to severe mitral regurgitation by 2D echo in 05/2016. Significant for GERD. Significant for prior complaints of abdominal pain and irritable bowel syndrome. Apparently, followed previously as an outpatient by Dr. Pierson and GI. History of known biliary dyskinesia during her prior admission in 05/2016 having an abnormal HIDA scan. History of weight loss. History of reported diabetes, but presently on no medications. History of hyperlipidemia. History of cerebrovascular disease with a small CVA in 05/2016. History of depression and anxiety. History of osteoarthritis with the prior chronic use of opioids, hydrocodone for her arthritis pain. PAST SURGICAL HISTORY: Significant for hysterectomy in the past. FAMILY HISTORY: Significant for diabetes and hypertension. SOCIAL HISTORY: The patient lives at home with one of her daughters, with other family members helping out. Denies tobacco abuse. Denies alcohol abuse. Denies illicit recreational drug abuse. History And Physical [address] [address] NAME: ERNESTINA CARRILLO : 40 STATUS : ADM IN [facility]#: [id number] AGE: 76 ADM/REG DATE : 08/08/16 MR#: [id number] REPORT SERV DATE: 08/08/16 DICTATED BY: MILLIE HUNT DATE: 08/08/16 REPORT STATUS : Draft TRANSCRIBED BY: EZ DATE: 08/08/16 ALLERGIES: NOW REPORTED TO LIPITOR AND FENOFIBRATE, BOTH PRODUCING "VOMITING" (EVEN THOUGH BOTH MEDICATIONS ARE LISTED IN PATIENT'S HOME MEDICATION LIST). HOME MEDICATIONS: According to the list provided, the patient is taking at home: Tylenol 325-650 mg p.o. b.i.d. p.r.n., albuterol HFA 2 puffs inhalation b.i.d. p.r.n. shortness of breath, Xanax 0.25 mg p.o. at bedtime as scheduled, aspirin 325 mg p.o. daily, Lipitor 80 mg p.o. at bedtime (?), vitamin D 400 units p.o. daily, Cardizem CD 240 mg p.o. q.a.m., fenofibrate 160 mg p.o. at bedtime (?), folic acid 800 mcg p.o. daily, lisinopril 20 mg p.o. q.a.m., Amitiza 24 mcg p.o. b.i.d., Prilosec 20 mg p.o. b.i.d., Zofran 4 mg p.o. b.i.d. p.r.n., MiraLAX one packet p.o. daily and Aspercreme topically p.r.n. body aches. REVIEW OF SYSTEMS: Per H and P, otherwise negative in all review of systems. Please note that the comprehensive review of system was obtained and interim relevant review of system was including in the H and P. PHYSICAL EXAMINATION: GENERAL: Pleasant, but pale, frail, overall ill appearing, likely chronic, complaining of abdominal pain. VITAL SIGNS: Upon arrival in the emergency room, blood pressure 156/100, pulse 91, respiratory rate 20, temperature 97.4, oxygen saturation 96% on room air. HEENT: With bilateral cataracts. Extraocular movements intact. Throat, mild erythema. No exudate. Dry mucosa. No signs of tenderness. Atraumatic. NECK: Supple. No JVD. No bruit. No thyromegaly. No lymph nodes. LUNGS: Bilateral air entry with few bibasilar dry crackles. No wheezing. Good airway movement. HEART: Positive S1, S2. Regular rate and rhythm. Positive mitral regurgitation. Murmur at the apex. No rub. No gallop. PMI not displaced by palpation. ABDOMEN: Positive bowel sounds. Soft, with mild and very nonspecific diffuse tenderness. No guarding. No hepatosplenomegaly. No rebound tenderness. EXTREMITIES: Decreased range of motion with osteoarthritic changes. No clubbing, no cyanosis, no edema. No calf tenderness. +2 pulses. NEUROLOGIC: Alert and oriented x2. She knows she is in the hospital, knows her name and date of . Less oriented to time. Moves all four extremities. Very slow and sluggish, slow to react, looking extremely depressed and with a very flat affect. Otherwise, cranial nerves grossly nonfocal. Motor strength 4 to 5/5, symmetrical, bilateral. Deep tendon reflexes 2/2, symmetrical, bilateral. BACK: With decreased range of motion. No focal or localized tenderness. No CVA tenderness. SKIN: No bruises, no rashes, no lacerations. Positive tenting with poor turgor sign. SIGNIFICANT LABORATORY DATA: Chest x-ray: Not available, not done. CT scan of the abdomen and pelvis: Without contrast by preliminary report from emergency room, showed the enlargement of the previously known AAA about 5.5 cm without rupture. Otherwise, no acute intraabdominal pathology (full report attached to chart and discussed with the patient and family). EKG (personal reading): Showed normal sinus rhythm at 86 beats per minute. No acute ST elevation. No specific ST-T changes in lateral leads. Sodium 139, potassium 2.1, History And Physical [facility] [address] [place]. [address] NAME: ERNESTINA CARRILLO : 40 STATUS : ADM IN [facility]#: [id number] AGE: 76 ADM/REG DATE : 08/08/16 MR#: [id number] REPORT SERV DATE: 08/08/16 DICTATED BY: MILLIE HUNT ION DATE: 08/08/16 REPORT STATUS : Draft TRANSCRIBED BY: EZ DATE: 08/08/16 chloride 104, bicarb 30, BUN 7, creatinine 0.46, glucose 107, calcium 9.4, magnesium 1.5. Liver function tests within normal limits except albumin 3.0. Lipase 231, which is within normal limits. Urinalysis is still pending. White cell count 6.2, hemoglobin 11.3, and platelet count 273. ASSESSMENT AND PLAN AND PROBLEM LIST: The patient is a pleasant 76-year-old black woman with prior known history of abdominal aortic aneurysm, with abdominal pain, anorexia, prior reported weight loss and malnutrition, presented to the emergency room with complaints of abdominal pain and poor p.o. intake. IMPRESSION: 1. Anorexia. a. Possible multifactorial. Family considered PEG tube placement for nourishment at this moment. b. Gastroesophageal reflux disease by history. c. Biliary dyskinesia by history with an abnormal HIDA scan in 05/2016. d. Abdominal pain, generalized, nonspecific. Uncertain etiology at this moment. e. Irritable bowel syndrome with history of chronic constipation. For all the above, we are going to obtain nutritional consult. We are going to obtain a GI consult. Continue PPI for now. Provide symptomatic treatment for abdominal pain. Start a small dose of Marinol and Megace. Further investigation with an abdominal Doppler ultrasound to assess for possible arterial insufficiency. We are going to try to treat her depression and stimulate p.o. intake. 1. Malnutrition, protein and calorie. Present on admission. Likely moderate to severe with significant prior unknown weight loss. We are going to obtain a nutritional consult to offer Ensure Plus. Check a prealbumin level. 2. Electrolyte abnormalities with hypokalemia, hypomagnesemia. We are going to replace electrolytes. Check phosphorus, correct as indicated. 3. Cardiovascular. a. Abdominal aortic aneurysm, with now enlarging 5.[address] scan. We are going to obtain a consult with Dr. Jackson, vascular surgeon who has seen the patient and evaluated her in 05/2016. b. Possibly mesenteric ischemia. We are going to obtain a mesenteric Doppler arterial ultrasound. c. Coronary artery disease by history, presently stable. d. Essential hypertension. We are going to continue lisinopril and Cardizem. Use p.r.n. IV hydralazine for increased blood pressure. e. Moderate to severe mitral regurgitation. f. Mild diastolic dysfunction. 4. Reported history of diabetes type 2, not insulin dependent, with present complications. Possible previously documented hyperglycemia when the patient was on high dose of steroids due to her encephalopathy. We are going to monitor blood sugar levels. Check her hemoglobin A1c. 5. Hyperlipidemia, mixed type by history. The patient is reportedly taking Lipitor and fenofibrate, which she is reportedly allergic to or makes her nauseated. We are going to check a lipid profile in a.m., and hold the medications at this moment. History And Physical [address] [address] NAME: ERNESTINA CARRILLO : 40 STATUS : ADM IN [facility]#: [id number] AGE: 76 ADM/REG DATE : 08/08/16 MR#: [id number] REPORT SERV DATE: 08/08/16 DICTATED BY: MILLIE HUNT DATE: 08/08/16 REPORT STATUS : Draft TRANSCRIBED BY: MODSilvia DATE: 08/08/16 6. Anemia, mild and likely multifactorial. Continue to monitor. No overt signs of GI bleed. 7. Neurologic problem. a. Cerebrovascular disease, status post prior cerebrovascular accident in 05/2016. b. Depression and anxiety, likely significant component of her presentation. There is a possibility the patient may have mild cognitive impairment and dementia contributing to her poor p.o. intake and anorexia. 8. Osteoarthritis, osteoporosis, deconditioning, and debilitation. Provide adequate pain control. Consider Physical Therapy evaluation. PROGNOSIS: Moderate for this admission, but rather guarded in medium and long-term due to the patient's poor functional status. Discussed with the patient and patient's family present at bedside. Questions were answered in full. Please note, the patient is a full code at this moment as discussed with the patient and family at bedside. Please note also the written H and P, and written orders and instructions. RF/MODL Millie Hunt M.D. / [id number] CC: Bull Whyte M.D. Charles Scott Joels, M.D.
--- NOTE | ~2016-08-08 | IDS ---
Interim Discharge Summary [facility] [address] [place]. [address] NAME: ERNESTINA CARRILLO : 40 STATUS : ADM [facility]#: [id number] AGE: 76 ADM/REG DATE : 08/08/16 MR#: [id number] REPORT SERV DATE: 08/12/16 DICTATED BY: RENEA CARDOSO DATE: 08/12/16 REPORT STATUS : Draft TRANSCRIBED BY: MODL DATE: 08/12/16 ADMISSION DATE: 08/08/2016 DISCHARGE DATE: CONSULTATIONS: 1. GI, Dr. Emmanuel Pierson. 2. Vascular surgeon, Dr. Mando Jackson. INTERIM DIAGNOSES: 1. Type 3 thoracoabdominal aortic aneurysm. 2. History of gastroesophageal reflux disease and biliary dyskinesia. 3. Abdominal pain. 4. Irritable bowel syndrome with chronic constipation. 5. Pdlpeokt-lt-ggfkno protein-calorie malnutrition. 6. Status post hypokalemia. 7. Status post hypomagnesemia. 8. Coronary artery disease. 9. Moderate mitral regurgitation. 10.History of cerebrovascular accident. 11.Hypertension. 12.Depression and anxiety. DIAGNOSTIC EXAMS: Echocardiogram showing left ventricular systolic function intact at 52%, mild left ventricle diastolic dysfunction. Right ventricular systolic function intact. Aortic sclerosis with mild stenosis. Ppqljyig-hr-gvvjqu mitral regurgitation. Mild tricuspid regurgitation. Carotid ultrasound, no significant carotid stenosis. Vertebral arteries exhibit antegrade flow. CAT scan of the abdomen and pelvis showing interval increase in the size of abdominal aortic aneurysm, which extends from above the celiac artery to just below the renal arteries, measuring 4.8 x 5.3 cm. No evidence for aneurysmal leak. Stable mild aneurysmal dilatation of the lower abdominal aorta, 2.4 x 2.5. Stable mild ectasia of the common iliac arteries. Mild colonic diverticulosis without CT evidence of acute diverticulitis. Heavy coronary artery calcification. CTA of abdomen and pelvis showing saccular 5.3 x 5.0 cm suprarenal abdominal aortic aneurysm extending from just below the diaphragmatic hiatus to the origin of the renal arteries. Mild fusiform ectasia of the infrarenal abdominal aorta, up to 2.3 x 2.6 cm. Mild atherosclerosis of the aorta and iliac arteries and origin of the celiac arteries with suspected mild stenosis in proximal celiac. Mild bibasilar subsegmental atelectasis in the lungs. 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 Mild aortic valvular calcification. No evidence of acute intrapelvic or pelvic pathology. Mesenteric ultrasound, mild elevation of the celiac artery origin with a widely patent SMA and TESHA. MRI of the brain, chronic ischemic and involutional findings with no acute infarct or other acute findings in noncontrasted MRI. HOSPITAL COURSE: Please refer to the H and P done by Dr. Sommers dated on 08/08/2016. Briefly, this is a 76-year-old female, who comes in for abdominal pain. The patient has multiple medical problems, and the daughter mentioned that the patient "lost her will to live" about five years ago. She started having decrease in appetite and decrease in Interim Discharge Summary [address] [place]. [address] NAME: ERNESTINA CARRILLO : 40 STATUS : ADM [facility]#: [id number] AGE: 76 ADM/REG DATE : 08/08/16 MR#: [id number] REPORT SERV DATE: 08/12/16 DICTATED BY: RENEA CARDOSO DATE: 08/12/16 REPORT STATUS : Draft TRANSCRIBED BY: EZ DATE: 08/12/16 ambulation. The family is trying their best to cheer up the patient by taking her out. However, she continues to have some anhedonia. She was here in May and she was diagnosed with an aneurysm, and she started complaining of this abdominal pain, which seems to be more than what she chronically feels, a decrease in p.o. intake, and more decrease in her mobilization. She was then sent here and there was a question that the patient might have some change in personality, so we ruled her out for any stroke. We did a CAT scan, which showed the above findings, and Vascular Surgery was consulted because there was an increase in the aneurysm in just two months. However, with the findings, they believe that she would need extensive surgery, very unlikely that we can do any kind of endovascular surgery on her in this hospital. She might be needed to be referred outside. Most likely, she would need an open surgery. Family and the patient refuse any intervention at this time. Meanwhile, she got a GI consultation. Dr. Espinoza, covering for Dr. Pierson, wanted the CAT scans to be done, and we are waiting for further input from Dr. Pierson. Meanwhile, the patient was given some laxatives, she was able to move her bowels, and there is some relief in her abdominal pain, but continues to have generalized mild abdominal pain and poor p.o. intake. The family is worry of having anymore tests, and they would not agree to any kind of surgery. Meanwhile, we got PT involved, they recommended SNF, family prefers [facility]. I discussed with them about long-term prognosis and advance directives. The patient is open for CPR, but not intubation or having a ventilator. For now, we are waiting for further input from GI and if they do not have anything else planned, the patient will need to go to a rehab or a SNF. A partner of mine will be following up the patient starting tomorrow morning. PANDA/EZ Renea Cardoso M.D. / [id number] CC: Bull Goins M.D.
--- NOTE | ~2016-08-08 | DS ---
Discharge Summary [place] [address] [place]. [address] NAME: ERNESTINA CARRILLO : 40 STATUS : DIS IN PAT#: [id number] AGE: 76 ADM/REG DATE : 08/08/16 MR#: [id number] REPORT SERV DATE: 08/19/16 DICTATED BY: ANU LÓPEZ DATE: 08/18/16 REPORT STATUS : Draft TRANSCRIBED BY: MODL DATE: 08/18/16 ADMISSION DATE: 08/08/2016 DISCHARGE DATE: 08/18/2016 DISCHARGE DIAGNOSES: 1. Acute on chronic abdominal pain with nausea, vomiting, anorexia with weight loss. 2. Enlarging thoracic-abdominal aortic aneurysm. 3. History of diabetes type 2. A1c is down to 5. 4. Severe protein calorie malnutrition. 5. Hhddtvwx-fe-eqrbks mitral regurgitation. 6. Major depression with anxiety history. 7. Coronary artery disease. 8. Prior history of stroke left-sided centrum semiovale in 05/2016. 9. Biliary dyskinesia. DISPOSITION: Home with hospice. The patient was discharged on 08/18/2016 pending family ability to arrange for set up for discharge for [facility]. HOSPITAL COURSE: Please see complete hospital course by Dr. Eris Berman interim summary on 08/17/2016 just 24 hours ago. DICTATED BY: MD LINDA Manuel/EZ Anu López MD / [id number] CC: MD Cm Manuel M.D.
--- NOTE | ~2016-08-08 | IDS ---
Interim Discharge Summary [facility] [address] [place]. [address] NAME: ERNESTINA CARRILLO : 40 STATUS : ADM IN PAT#: [id number] AGE: 76 ADM/REG DATE : 08/08/16 MR#: [id number] REPORT SERV DATE: 08/17/16 DICTATED BY: RENEA BERMAN DATE: 08/17/16 REPORT STATUS : Draft TRANSCRIBED BY: MODL DATE: 08/17/16 ADMISSION DATE: 08/08/2016 DISCHARGE DATE: CONSULTANTS: 1. Dr. Marlo Espinoza and Dr. Emmanuel Pierson, GI. 2. Dr. Mando Jackson, Vascular Surgery. PROBLEM LIST: 1. Acute on chronic abdominal pain with nausea and anorexia. 2. Enlarging thoracic/abdominal aortic aneurysm. 3. History of diabetes mellitus type 2 with current A1c down to 5%. 4. Severe protein-calorie malnutrition. 5. Iewgkyub-pk-afjjlu mitral regurgitation. 6. Major depression with history of anxiety. 7. History of coronary artery disease. 8. History of previous small stroke, left side centrum semiovale, 05/2016. 9. History of biliary dyskinesia. HISTORY: This patient has ongoing and worsening complaints of abdominal pain, nausea, and vomiting. She was in the hospital here, 05/28/2016 through 06/11/2016, with the same problems, at that time, seen to have lethargy and possible encephalopathy and went through a major workup without clear explanation for her mental status changes and Neurology did start her on some steroids. She was noted to have an acute small stroke at that time, but it was not felt to cause her lethargy and anorexia. Steroids helped her transiently. She was having ongoing abdominal pain, nausea. She had imaging showing an abdominal aortic aneurysm 4.4 cm in size. Vascular recommended outpatient followup. She was seen by Dr. Moess Burrows and had studies showing evidence of a biliary dyskinesia with ejection fraction on the HIDA scan of 12% on 06/01/2016, but General Surgery indicated they felt she was a poor surgical candidate and it was unlikely to explain her chronic symptoms. She had gone to rehab and was released home, but just really did not improve, was brought back because of severe anorexia, nausea, and vomiting. In talking to daughters, they indicated to me that she became convinced that she had a cancer about five years ago and gave up and nothing that anyone said would change her mind. She had a number of diagnostic evaluations and none of that changed her opinion. She according to family has just given up. She was seen by Psychiatry back in May. She felt she might have depression. During this current hospitalization, she has been withdrawn. She still like in May does not really speak unless we force her to and then it is just a word or two, mostly she just nods her head. She does not offer any conversation on her own. During this hospitalization, she had a CTA of the chest, abdomen, and pelvis, which revealed enlarging suprarenal abdominal aortic aneurysm 5.3 x 5.0, also an infrarenal abdominal aortic aneurysm 2.3 x 2.6. Because of these enlargement, she was seen by Dr. Jackson, indicated, he felt she was a poor candidate for endovascular repair. One of his partner saw the patient and talked about possible open repair. These were discussed with the patient. Interim Discharge Summary [address] [place]. [address] NAME: ERNESTINA CARRILLO : 40 STATUS : ADM IN PAT#: [id number] AGE: 76 ADM/REG DATE : 08/08/16 MR#: [id number] REPORT SERV DATE: 08/17/16 DICTATED BY: RENEA BERMAN DATE: 08/17/16 REPORT STATUS : Draft TRANSCRIBED BY: EZ DATE: 08/17/16 The patient did not want to have either endovascular procedure or open repair. She did not want to be referred to a [facility] for evaluation for this either. Her GI team saw her here. She declined to have any endoscopic evaluations at this time. Her renal function is normal. Her liver function is normal. Her pre-albumin is low at 10.4. Her serum albumin is low at 2.5. She has lost a lot of weight. She previous had diabetes, but currently her A1c is only 5%. Her lactic acid level was normal. Recent RON titer was normal. CBC is unremarkable. Thyroid testing was normal. The concern has been that this is psychogenic and that she is just unwilling to eat and has given up on life. Her family feel she understands the situation. They feel that she has appropriately made her own decisions. Initially, in their discussion with Dr. Mendez, they had made her a limited DNR where it would be okay to do compressions and shocking. As the patient deteriorated, the family chose to have hospice and they felt the patient would want to be comfort measures only and a full DNR. They met with [facility] and they scheduled for her to go home tomorrow. The patient is in agreement with that. The family is aware of her very poor prognosis and the likelihood of in the near future due to either dehydration if she stops taking fluids or more infectious problems if she continues on a course of severe malnutrition. Part of the studies here included a mesenteric Doppler on 08/10/2016, which showed mild elevation of the celiac artery origin with a widely patent SMA and TESHA, so it did not appear to have ischemic changes for the intestine. She also had an MRI of the brain on 08/10/2016, only showing chronic ischemic and involutional changes with no acute infarction or other acute abnormalities. RSG/MODL Renea Berman M.D. / [id number] CC: Bull Whitaker M.D.
[2016-08-08 14:34] LABS: BASOPHILS 0.2 %; BASOPHILS ABSOLUTE 0.01 10/3/uL (0.0-0.16); EOSINOPHILS 1.6 %; HEMATOCRIT 33.3 % (36.0-48.0); HEMOGLOBIN 11.3 g/dL (12.0-16.0); IMMATURE GRANULOCYTES 0.3 %; IMMATURE GRANULOCYTES ABSOLUTE 0.02 10/3/uL (0.0-0.11); LYMPHOCYTES 58.7 %; LYMPHOCYTES ABSOLUTE 3.62 10/3/uL (0.67-4.30); MEAN CORPUS HGB CONC 33.9 g/dL (32.0-36.0); MEAN CORPUSCULAR HEMOGLOB 30.1 pg (26.0-34.0); MEAN CORPUSCULAR VOLUME 88.8 fL (80-100); MEAN PLATELET VOLUME 9.8 fL (9.2-13.0); MONOCYTES 8.8 %; MONOCYTES ABSOLUTE 0.54 10/3/uL (0.21-1.20); NEUTROPHILS 30.4 %; NEUTROPHILS ABSOLUTE 1.88 10/3/uL (2.02-8.40); PLATELET COUNT 273 10/3/uL (150-400); RED CELL COUNT 3.75 10/6/uL (4.0-5.6); WHITE BLOOD CELLS 6.2 10/3/uL (4.5-10.5)
[2016-08-08 14:40] LABS: MANUAL DIFF NO %; RBC DISTRIBUTION WIDTH 16.6 % (12.0-16.0)
[2016-08-08 14:50] LABS: CALCIUM, SERUM 9.4 MG/DL (8.5-10.4); CHLORIDE, SERUM 104 MMOL/L (96-112); CO2 (CARBON DIOXIDE) 30 MMOL/L (24-34); CREATININE 0.46 MG/DL (0.55-1.02); GFR AFRICAN AMERICAN 112 ML/MIN (>=60); GFR NON AFRICAN AMERICAN 97 ML/MIN (>=60); SGOT(AST) 25 U/L (5-40); SGPT(ALT) 22 U/L (5-65); SODIUM, SERUM 139 MMOL/L (135-148); TOTAL BILIRUBIN 0.9 MG/DL (0-1.2)
[2016-08-08 14:52] LABS: A/G RATIO 0.9 (0.7-1.9); ALKALINE PHOSPHATASE 64 U/L (45-117); BUN (BLOOD UREA NITROGEN) 7 MG/DL (6-23); GLOBULIN 3.4 G/DL (2.5-4.1); GLUCOSE, SERUM 107 MG/DL (60-99); POTASSIUM, SERUM 2.1 MMOL/L (3.5-5.3); TOTAL PROTEIN 6.4 G/DL (6.0-8.5)
[~2016-08-08 15:48] MED LIST: AMITIZA24 PO; ASA5GR PO; ASPERCREME TOP; CAP50 PO; CARDCD240 PO; FOLIC ACID800 MCG PO; LIPITOR80 MG PO; LOFIB160 PO; LOFIBRA160 MG PO; MIRALAX POWDER1 PKT PO; NEXIUM40 PO; NORCO1 TA1 PO; PR25 PO; PRILOSEC OTC20 MG PO; PRIN20 PO; PRIN5 PO; T PO; TAZTIA X1 PO; ULTRAM50 PO; VENTOLIN HFA INH; VITAMIN D3 PO; VITAMIN D400 UNI1 PO; X25 PO; ZOFRAN4 PO
[2016-08-08 20:50] LABS: PREALBUMIN < 3.0 MG/DL (17.0-43.0)
[2016-08-08 21:06] LABS: PROCALCITONIN <0.05 ng/mL (<0.5)
[2016-08-08 21:17] LABS: CK-MB < 0.5 NG/ML; CPK 39 U/L (0-200); FOLATE 20.9 NG/ML (>5.2); FREE T4 1.22 NG/DL (0.76-1.46); PHOSPHORUS, SERUM 2.3 MG/DL (2.5-4.5); TROPONIN I <0.02 NG/ML (<0.05); ULTRASENSITIVE TSH 0.477 MCIU/ML (0.358-3.740)
[2016-08-08 21:52] LABS: PARTIAL THROMBO TIME 31.2 SEC (22.5-37.2); PROTIME (NOT ORD) 13.3 SEC (12.0-14.5)
[2016-08-09 06:10] LABS: BASOPHILS 0.4 %; BASOPHILS ABSOLUTE 0.02 10/3/uL (0.0-0.16); EOSINOPHILS 2.4 %; EOSINOPHILS ABSOLUTE 0.11 10/3/uL (0.0-0.53); HEMATOCRIT 31.7 % (36.0-48.0); HEMOGLOBIN 10.6 g/dL (12.0-16.0); IMMATURE GRANULOCYTES 0.2 %; IMMATURE GRANULOCYTES ABSOLUTE 0.01 10/3/uL (0.0-0.11); LYMPHOCYTES 60.6 %; LYMPHOCYTES ABSOLUTE 2.82 10/3/uL (0.67-4.30); MANUAL DIFF NO %; MEAN CORPUS HGB CONC 33.4 g/dL (32.0-36.0); MEAN CORPUSCULAR HEMOGLOB 29.8 pg (26.0-34.0); MEAN PLATELET VOLUME 9.1 fL (9.2-13.0); MONOCYTES 9.9 %; MONOCYTES ABSOLUTE 0.46 10/3/uL (0.21-1.20); NEUTROPHILS 26.5 %; NEUTROPHILS ABSOLUTE 1.23 10/3/uL (2.02-8.40); PLATELET COUNT 245 10/3/uL (150-400); RBC DISTRIBUTION WIDTH 16.6 % (12.0-16.0); RED CELL COUNT 3.56 10/6/uL (4.0-5.6); WHITE BLOOD CELLS 4.7 10/3/uL (4.5-10.5)
[2016-08-09 06:30] LABS: ALBUMIN 2.7 G/DL (3.5-5.0); BUN (BLOOD UREA NITROGEN) 5 MG/DL (6-23); CALCIUM, SERUM 8.9 MG/DL (8.5-10.4); CHLORIDE, SERUM 108 MMOL/L (96-112); CHOL/HDL RATIO(NOT ORDER) 2.9 (0-5); CHOLESTEROL 148 MG/DL (< 200); CK-MB 0.7 NG/ML; CO2 (CARBON DIOXIDE) 32 MMOL/L (24-34); CPK 22 U/L (0-200); CREATININE 0.39 MG/DL (0.55-1.02); GFR AFRICAN AMERICAN 118 ML/MIN (>=60); GFR NON AFRICAN AMERICAN 102 ML/MIN (>=60); GLUCOSE, SERUM 114 MG/DL (60-99); HDL CHOLESTEROL 51 MG/DL (> 49); LDL CHOLESTEROL 74 MG/DL (< 130); NON-HDL CHOLESTEROL 97 MG/DL (< 160); PHOSPHORUS, SERUM 2.9 MG/DL (2.5-4.5); POTASSIUM, SERUM 3.3 MMOL/L (3.5-5.3); SODIUM, SERUM 145 MMOL/L (135-148); TRIGLYCERIDE 118 MG/DL (< 150); TROPONIN I <0.02 NG/ML (<0.05)
[2016-08-10 06:58] LABS: BASOPHILS 0.3 %; BASOPHILS ABSOLUTE 0.03 10/3/uL (0.0-0.16); EOSINOPHILS 1.9 %; EOSINOPHILS ABSOLUTE 0.18 10/3/uL (0.0-0.53); HEMOGLOBIN 11.5 g/dL (12.0-16.0); IMMATURE GRANULOCYTES 0.2 %; IMMATURE GRANULOCYTES ABSOLUTE 0.02 10/3/uL (0.0-0.11); LYMPHOCYTES 65.6 %; LYMPHOCYTES ABSOLUTE 6.23 10/3/uL (0.67-4.30); MEAN CORPUS HGB CONC 32.7 g/dL (32.0-36.0); MEAN CORPUSCULAR HEMOGLOB 29.5 pg (26.0-34.0); MEAN CORPUSCULAR VOLUME 90.3 fL (80-100); MEAN PLATELET VOLUME 9.3 fL (9.2-13.0); MONOCYTES 7.9 %; MONOCYTES ABSOLUTE 0.75 10/3/uL (0.21-1.20); NEUTROPHILS 24.1 %; NEUTROPHILS ABSOLUTE 2.29 10/3/uL (2.02-8.40); PLATELET COUNT 307 10/3/uL (150-400); RBC DISTRIBUTION WIDTH 16.5 % (12.0-16.0)
[2016-08-10 07:00] LABS: HEMATOCRIT 35.2 % (36.0-48.0); WHITE BLOOD CELLS 9.5 10/3/uL (4.5-10.5)
[2016-08-10 07:01] LABS: MANUAL DIFF NO %
[2016-08-10 07:13] LABS: ALBUMIN 2.9 G/DL (3.5-5.0); BUN (BLOOD UREA NITROGEN) 4 MG/DL (6-23); CALCIUM, SERUM 9.5 MG/DL (8.5-10.4); CHLORIDE, SERUM 107 MMOL/L (96-112); CREATININE 0.71 MG/DL (0.55-1.02); GFR AFRICAN AMERICAN 96 ML/MIN (>=60); GFR NON AFRICAN AMERICAN 83 ML/MIN (>=60); GLUCOSE, SERUM 114 MG/DL (60-99); SODIUM, SERUM 141 MMOL/L (135-148)
[2016-08-10 07:14] LABS: CO2 (CARBON DIOXIDE) 23 MMOL/L (24-34); POTASSIUM, SERUM 4.1 MMOL/L (3.5-5.3)
[2016-08-10 07:22] LABS: PREALBUMIN 10.4 MG/DL (17.0-43.0)
[2016-08-10 08:05] LABS: EOSINOPHILS 1 %; LYMPHOCYTES 60 %; MONOCYTES 3 %; MONOCYTES ABSOLUTE (CALC) 0.29 10/3/uL (0.21-1.20); NEUTROPHILS ABSOLUTE (CALC) 3.42 10/3/uL (2.02-8.40); SEGMENTED NEUTROPHIL (0) 36 %; TOTAL NUCLEATED CELLS 100
[2016-08-10 08:08] LABS: PLATELET ESTIMATE ADQ (ADEQUATE); RBC MORPHOLOGY NORM (NORMAL)
[2016-08-10 08:09] LABS: SMUDGE CELLS OCC
[2016-08-13 05:24] LABS: BUN (BLOOD UREA NITROGEN) 5 MG/DL (6-23); CALCIUM, SERUM 9.2 MG/DL (8.5-10.4); CHLORIDE, SERUM 111 MMOL/L (96-112); CO2 (CARBON DIOXIDE) 21 MMOL/L (24-34); CREATININE 0.56 MG/DL (0.55-1.02); GFR AFRICAN AMERICAN 105 ML/MIN (>=60); GFR NON AFRICAN AMERICAN 91 ML/MIN (>=60); PHOSPHORUS, SERUM 2.7 MG/DL (2.5-4.5); POTASSIUM, SERUM 4.3 MMOL/L (3.5-5.3); SODIUM, SERUM 140 MMOL/L (135-148)
[2016-08-13 05:30] LABS: GLUCOSE, SERUM 88 MG/DL (60-99)
[2016-08-14 06:04] LABS: BASOPHILS 0.3 %; BASOPHILS ABSOLUTE 0.02 10/3/uL (0.0-0.16); EOSINOPHILS 1.5 %; HEMATOCRIT 36.2 % (36.0-48.0); HEMOGLOBIN 12.1 g/dL (12.0-16.0); IMMATURE GRANULOCYTES 0.3 %; IMMATURE GRANULOCYTES ABSOLUTE 0.02 10/3/uL (0.0-0.11); LYMPHOCYTES ABSOLUTE 3.55 10/3/uL (0.67-4.30); MANUAL DIFF NO %; MEAN CORPUS HGB CONC 33.4 g/dL (32.0-36.0); MEAN CORPUSCULAR HEMOGLOB 30.2 pg (26.0-34.0); MEAN CORPUSCULAR VOLUME 90.3 fL (80-100); MEAN PLATELET VOLUME 9.6 fL (9.2-13.0); MONOCYTES 8.5 %; MONOCYTES ABSOLUTE 0.56 10/3/uL (0.21-1.20); NEUTROPHILS 35.4 %; NEUTROPHILS ABSOLUTE 2.33 10/3/uL (2.02-8.40); PLATELET COUNT 236 10/3/uL (150-400); RBC DISTRIBUTION WIDTH 15.6 % (12.0-16.0); RED CELL COUNT 4.01 10/6/uL (4.0-5.6); WHITE BLOOD CELLS 6.6 10/3/uL (4.5-10.5)
[2016-08-14 06:17] LABS: ALBUMIN 2.5 G/DL (3.5-5.0); BUN (BLOOD UREA NITROGEN) 7 MG/DL (6-23); CALCIUM, SERUM 9.8 MG/DL (8.5-10.4); CHLORIDE, SERUM 111 MMOL/L (96-112); CO2 (CARBON DIOXIDE) 20 MMOL/L (24-34); CREATININE 0.61 MG/DL (0.55-1.02); GFR AFRICAN AMERICAN 102 ML/MIN (>=60); GFR NON AFRICAN AMERICAN 88 ML/MIN (>=60); GLUCOSE, SERUM 73 MG/DL (60-99); PHOSPHORUS, SERUM 3.3 MG/DL (2.5-4.5); SODIUM, SERUM 140 MMOL/L (135-148)
[2016-08-14 06:18] LABS: POTASSIUM, SERUM 4.8 MMOL/L (3.5-5.3)
== END 2016-08-18 13:17 | disposition hospice, home (50) | DRG 300 ==
LOC: ER 15:48 → 2SO 17:47
PROVIDERS: Emergency Medicine; Internal Medicine
DX: I71.6 Thoracoabdominal aortic aneurysm, without rupture (principal); E46 Unspecified protein-calorie malnutrition; E11.9 Type 2 diabetes mellitus without complications; E83.42 Hypomagnesemia; I36.1 Nonrheumatic tricuspid (valve) insufficiency; D50.0 Iron deficiency anemia secondary to blood loss (chronic); F32.9 Major depressive disorder, single episode, unspecified; I10 Essential (primary) hypertension; I34.0 Nonrheumatic mitral (valve) insufficiency; R62.7 Adult failure to thrive; I25.10 Atherosclerotic heart disease of native coronary artery without angina pectoris; K21.9 Gastro-esophageal reflux disease without esophagitis; K57.90 Diverticulosis of intestine, part unspecified, without perforation or abscess without bleeding; Z51.5 Encounter for palliative care; E78.5 Hyperlipidemia, unspecified; M19.90 Unspecified osteoarthritis, unspecified site; K58.1 Irritable bowel syndrome with constipation; F41.9 Anxiety disorder, unspecified; Z66 Do not resuscitate; R09.02 Hypoxemia; E87.6 Hypokalemia; I34.1 Nonrheumatic mitral (valve) prolapse; D50.9 Iron deficiency anemia, unspecified; K82.8 Other specified diseases of gallbladder; Z88.8 Allergy status to other drugs, medicaments and biological substances; Z86.73 Personal history of transient ischemic attack (TIA), and cerebral infarction without residual deficits; Z53.29 Procedure and treatment not carried out because of patient's decision for other reasons
CPT/HCPCS: 70551; 71275; 74174; 74176; 80048; 80053; 80061; 80069; 81001; 82040; 82550; 82553; 82607; 82746; 82962; 83036; 83605; 83690; 83735; 84100; 84134; 84145; 84439; 84443; 84481; 84484; 85025; 85610; 85730; 93005; 93975; 96365; 96366; 96375; 97110-GP; 97116-GP; 97161-GP; 97530-GP; 99285; A9270-GY; G8978-CL-GP; G8979-CJ-GP; J2405; J2550; J2765; J3475; Q9967